=== PATIENT | male | born 1980 | race Caucasian/White ===

== ENCOUNTER 2024-02-09 23:30 | Inpatient (IN) | payer OTHER, SELFPAY ==
[2024-02-09 20:24] VITALS: BP 158/95
--- NOTE | 2024-02-09 21:15 | ED.GENMED ---
History of Present Illness
General
Chief Complaint: Extremity Pain (non-traumatic)
Source: patient
Time Seen by Provider: 02/09/24 21:07
History of Present Illness
History of Present Illness:
43yo right hand dominant male with no known past medical history presenting for evaluation of right arm swelling x 3 days. He reports swelling and discomfort in his right forearm for the past few days. He is also having right shoulder pain. He
reports some paresthesias in the hand. He denies any trauma to the area. Patient is worried that he may have a blood clot. 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 Patient is not on any current medications.
Past History
Past History
ED Past Medical History: None
ED Past Surgical History: None
Social History
Tobacco: Non-smoker
Personal:
Living: with family
Employment: Employed ([employer])
Family History
Family History: Other (Noncontributory)
Phy Exam
General Physical Exam
General Presentation: well appearing and no apparent distress
General age: appears stated age
General Skin: warm and dry
General Habitus: normal
General Mental: alert
ENT Exam
ENT Exam: normocephalic
Pulmonary Exam
Pulmonary Exam: no respiratory distress
Frankie Coma Scale
Eye Opening: Spontaneous
Verbal Response: Oriented
Motor Response: Obeys Commands
GCS Total Score: 15
Musculoskeletal Exam
Musculoskeletal Exam: other (+Generalized swelling in L forearm with prominent veins. Compartments soft. ROM of shoulder, elbow, wrist intact. 2+ radial pulse and sensation intact. )
Skin Exam
Skin Exam: normal color and warm/dry
Psychiatric Exam
Psychiatric Exam: normal mood/affect
Course
Orders/Labs/Results
Orders:
Orders
02/09/24 21:14
CR Shoulder - Right Min 2 View Urgent
Comment:
Reason For Exam: pain
US Periph Venous UPPER Ext RT Urgent
Reason For Exam: R arm swelling
02/09/24 22:34
Heparin 5,800 units IV NOW STA
Nursing to Place Non Medication Order As Directed
Physician Order: PTT 6 hours after initial start of Heparin infusion
02/09/24 22:45
Heparin 61788 Units/250 ml 25,000 units in 250 ml IV PER PROTOCOL
Weight to be used for heparin protocol in kilograms (kg):: 73.1
Protocol:: DVT/PE
PTT Goal Range to be used:: PTT 73 to 111 seconds
Order type:: Initial
INITIAL Infusion Dose (UNITS/KG/hr) & then follow protocol:: 18 units/kg/hr
Infusion Dose in UNITS/hr & then follow protocol (UNITS/hr):: 1,300
INFUSION RATE in mL/hr & then follow protocol (mL/hr):: 13
For DVT/PE algorithm, re-bolus for low PTT?: Yes
PTT less than or equal to 64 seconds:: Re-bolus 80 units/kg (max 10,000units). Increase by 300 units/hr
(+ 3mL/hr)
PTT 64.1 to 72.9 seconds:: Re-bolus 40 units/kg (max 5,000 units). Increase by 100 units/hr
(+ 1mL/hr)
PTT 73 to 111 seconds:: Target Range. No change in rate.
PTT 111.1 to 130.9 seconds:: Decrease rate by 100 units/hr (- 1 mL/hr)
PTT 131 to 199.9 seconds:: HOLD for 1 hr. Then decrease by 200 units/hr (- 2mL/hr)
PTT greater than or equal to 200 seconds:: HOLD for 2 hrs & Notify Provider. Then decrease by 300 units/hr
(- 3mL/hr)
Lab follow-up:: Each change, PTT q6h until 2 consecutive are therapeutic. Then
PTT daily.
02/09/24 23:00
Flush (0.9% Sodium Chloride) [Flush (Nss)] See Dose Instructions IV PER PROTOCOL
02/09/24 23:07
Admit/Transfer Patient As Directed
Co-Sign Provider:
Level of Care: Inpatient admission
Assign to:: Telemetry
Physician / Group: Vanessa
Diagnosis: RUE DVT
Reason for Telemetry: Arrhythmia
Date to Stop Telemetry: 02/12/24
Time to Stop Telemetry: 11:00
Reason for Hospitalization: heparin drip
Expected length of stay greater than two midnights?: Yes
ELOS- Estimated Length of Stay in days: 3
I certify the patient meets the requirements for IP care: Yes
02/09/24 23:08
PRN Pain Medication Management As Directed
May give lesser potent ordered pain med per pt: Yes
preference::
Protocol:: Medication orders for pain may be administered in a
manner that supports deferring to patient preference
when the pt is:
- Requesting an ordered lesser potent pain medication.
Least to most potent pain medications are defined
as: acetaminophen < NSAID < tramadol < opioids
(morphine, oxycodone, hydromorphone).
- Requesting a lesser dose of the same medication IF
ORDERED.
- Requesting a less intrusive route of administration
if both routes are prescribed by the provider (PO <
IV).
02/09/24 23:10
Code Status As Directed
Resuscitation Status: Full Code
02/09/24 23:27
Heparin 5,900 units IV PRN PRN
02/09/24 23:28
Heparin 2,900 units IV PRN PRN
02/09/24 23:30
Complete Blood Count/With Diff Urgent
Comprehensive Metabolic Panel Urgent
PTT Urgent
Prothrombin Time Urgent
02/12/24 11:00
DC Protocol for Telemetry ONCE
Abnormal Lab Results
02/09/24
23:30
RBC 4.63 L 10^6/uL
(4.70-6.10)
MCH 31.7 H pg
(27.0-31.0)
Lymphocytes % 20.3 L %
(20.5-51.1)
BUN 22 H mg/dl
(9-20)
Glucose 106 H mg/dl
(70-99)
02/09/24 23:30
02/09/24 23:30
Vital Signs
Initial and Last Documented VS:
Initial Vital Signs
Temp Pulse Resp BP Pulse Ox
98.3 F 91 16 158/95 100
02/09/24 20:24 02/09/24 20:24 02/09/24 20:24 02/09/24 20:24 02/09/24 20:24
Last Documented Vital Signs
Temp Pulse Resp BP Pulse Ox
98.3 F 91 16 158/95 100
02/09/24 20:24 02/09/24 20:24 02/09/24 20:24 02/09/24 20:24 02/09/24 20:24
MDM/Problems Addressed
Differential Diagnosis Includes:
43yoM here with atraumatic R arm swelling x 3 days. He is mildly hypertensive with otherwise normal vital signs. He is well-appearing in no acute distress. There is swelling noted to the right upper extremity with prominent veins in the forearm.
Extremity is neurovascularly intact. Differential diagnosis includes but is not limited to: Superficial thrombophlebitis, DVT, dependent edema, no clinical evidence of compartment syndrome
Initial ED plan: Check venous duplex and right shoulder x-rays.
*Critical Care Note
Total Time (30-74mins, 75-104mins- exclusive of procedures): Not Applicable
Update Note
Update Note:
Venous duplex shows an acute occlusive DVT in the right subclavian vein. Unclear precipitant of DVT. Patient has no obvious risk factors and denies any recent travel. His father does have a history of a DVT although patient states this was
precipitated by a 10-hour car ride. Labs and IV heparin ordered. He was admitted for further evaluation and management.
ED Attending Note
-
Portions of this chart may have been created with voice recognition software.� Occasional wrong word or��sound alike� substitutions may have occurred due to the inherent limitations of voice recognition software.
Discharge Plan
Departure
Patient Disposition: Admit
Date of Disposition: 02/09/24
Time of Disposition: 22:47
Presentation/result/management discussed w/ accepting MD/DO: Hospitalist
Discharge Problem:
Acute subclavian vein thrombosis
Interventions
Interventions:
*Risk Screen - Suicide Last Done: 02/09/24 20:24
*General Assessment Last Done: 02/09/24 21:07
*Neglect/Abuse Screening Last Done: 02/09/24 21:07
*ED COVID-19 Vaccine History Last Done: 02/09/24 21:07
ED-Skin Assessment Last Done: 02/09/24 21:07
ED-Musculoskeletal Assessment Last Done: 02/09/24 21:07
--- NOTE | 2024-02-09 22:53 | HPS.HSE ---
Family Physician
-
Family Physician: Rm Capps
Chief Complaint
-
Pain and Swelling of Right Arm
History of Present Illness
Patient is a 43 y/o male without significant past medical history who presents with pain and swelling of the right arm for the past 3 days. He reports pain and swelling have gotten progressively worse over the past few days. Patient reports
prominent veins in the right upper extremity. He notes the arm feels tight with some associated numbness and tingling. He notes some upper right posterior shoulder pain. He denies any known injury.
Medical History
Past Medical History
Past Medical History: Reports None
Past Surgical History: Reports None
Social History
Tobacco: Non-smoker
Alcohol: Occasional
Family History
Family History: Other (Father: DVT)
Allergies / Home Medications
Allergies reflects when Allergies were last updated in [facility].
Home Medications with original date entered in [facility]
Allergy/Medication List:
Allergies
Allergy/AdvReac Type Severity Reaction Status Date / Time
No Known Allergies Allergy Verified 02/09/24 20:23
Home Medications
No Meds [No Current Medications] 02/09/24
Review of Systems
-
A 12 point ROS was completed and negative except as noted: Yes
Constitutional: Denies Fever or Chills
Respiratory: Denies Cough or Trouble Breathing
Cardiac: Denies Chest Pain or Palpitations
Abdomen/GI: Denies Abdominal Pain, Nausea or Vomiting
Physical Exam
Vital Signs
Vital Signs
Temp Pulse Resp BP Pulse Ox
98.3 F 91 16 158/95 100
02/09/24 20:24 02/09/24 20:24 02/09/24 20:24 02/09/24 20:24 02/09/24 20:24
Physical Exam
General: Comfortable and Conversant
HEENT: Anicteric and Moist mucous membranes
Respiratory: Clear and Non Labored Respirations
Cardiac: S1/S2 and Regular Rhythm
GI: Soft and Non Tender
Rectal: Deferred by Provider
Musculoskeletal: No Clubbing, No Cyanosis and Other (Right Upper Extremity)
Skin: Warm and Dry
Neuro: Awake, Alert, Oriented and Nonfocal/grossly intact
Psych: Calm
Laboratory Results
-
Peripheral Vascular Ultrasound:
ACUTE OCCLUSIVE DEEP VENOUS THROMBOSIS in the RIGHT SUBCLAVIAN VEIN.
Data Reviewed
-
Lab Data: Other (CBC and CMP are pending)
Impression/Plan
-
Right Subclavian Vein DVT
-Consult Vascular Surgery
-Continue heparin drip
-Patient would benefit from hematology evaluation as outpatient
Code Status: Full Code
--- NOTE | 2024-02-09 23:17 | W.PN.UPDATE ---
Update Note
Progress Note Update
This is an addendum to the H&P written by Svetlana Mesa on 02/09/2024. Patient seen and examined independently with PA.
43-year-old male no past medical history presenting for right arm swelling and discomfort radiating to the shoulder for 3 days with some numbness in the fingers. He denies any trauma. Venous ultrasound of right upper extremity shows acute
occlusive DVT in the right subclavian vein.
His father had a DVT in his right lower extremity which was not provoked from any clear cause.
On examination the right upper extremity is very tight.
DVT appears to be unprovoked. Heparin drip. Vascular surgery consulted due to numbness and tingling in the upper extremity for consideration of thrombolysis. Outpatient follow-up with hematology for hypercoagulation workup.
[2024-02-09] MEDS: HEPARIN 5800 UNITS IV (23:35)
[2024-02-09 23:37] LABS: % Basophils 0.5 % (0-2); % Eosinophils 1.2 % (0-6); % Immature Granulocytes 0.3 % (0-0.5); % Lymphocytes 20.3 % (20.5-51.1); % Monocytes 6.8 % (1.7-9.3); % Neutrophils 70.9 % (42.2-75.2); Absolute Eosinophils 0.1 10^3/uL (0-0.7); Absolute Lymphocytes 1.6 10^3/uL (1.2-3.4); Absolute Monocytes 0.5 10^3/uL (0.1-0.6); Absolute Neutrophils 5.5 10^3/uL (1.4-6.5); Hematocrit 42.1 % (39.0-52.0); Hemoglobin 14.7 g/dL (13.0-18.0); Mean Corp Hgb Conc. 34.9 g/dL (33.0-37.0); Mean Corpuscular Hgb 31.7 pg (27.0-31.0); Mean Corpuscular Volume 90.9 fL (80.0-94.0); Mean Platelet Volume 9.2 fL (7.4-10.4); Nucleated Red Blood Cells % 0 % (-); Platelet Count 211 10^3/uL (130-400); Red Blood Cell Count 4.63 10^6/uL (4.70-6.10); Red Cell Dist. Width 11.5 % (11.5-14.5); White Blood Cell Count 7.8 10^3/uL (4.8-10.8)
[2024-02-09] MEDS: HEPARIN 25000 UNITS/250 ML IV (23:39)
[2024-02-09] MEDS: TYLENOL 1000 MG PO (23:48)
[2024-02-09 23:49] LABS: ALT (SGPT) 25 U/L (0-50); AST (SGOT) 31 U/L (17-59); Albumin 4.9 g/dl (3.5-5.0); Alkaline Phosphatase 98 U/L (38-126); Blood Urea Nitrogen 22 mg/dl (9-20); Calcium 9.7 mg/dl (8.4-10.2); Carbon Dioxide 25 mmol/L (22-30); Chloride 101 mmol/L (98-107); Glucose 106 mg/dl (70-99); Potassium 3.8 mmol/L (3.5-5.1); Sodium 143 mmol/L (135-145); Total Bilirubin 0.6 mg/dl (0.2-1.3); Total Protein 7.5 g/dl (6.3-8.2); eGFR > 60.00
[2024-02-10] VITALS (18 sets, daily range): BP systolic 100–135; BP diastolic 68–97; BMI 22.9
[2024-02-10] LABS: INR 1.11; PT 14.3 Sec (11.4-14.6)
[2024-02-10 00:01] LABS: APTT 28.3 Sec (23.4-35.0)
--- NOTE | 2024-02-10 01:32 | PTCARENOTE ---
Received pt from ED Via stretcher. Patient able to stand on standing scale with minimal assistance. Pt AAO*4. Denies any chest pain or shortness of breath. Heparin gtt currently at 1300 units hour with next ptt draw ordered for 0540 for ptt goal
73-111. Vital signs stable. Pt oriented to room and plan of care. All orders reviewed and acknowledged. Bed in low position, call briceno within reach.
[2024-02-10] MEDS: TYLENOL 650 MG PO ×2 (03:16→18:25)
[2024-02-10 06:31] LABS: Hematocrit 42.3 % (39.0-52.0); Hemoglobin 15.1 g/dL (13.0-18.0); Mean Corp Hgb Conc. 35.7 g/dL (33.0-37.0); Mean Corpuscular Hgb 31.9 pg (27.0-31.0); Mean Corpuscular Volume 89.4 fL (80.0-94.0); Mean Platelet Volume 9.2 fL (7.4-10.4); Platelet Count 192 10^3/uL (130-400); Red Blood Cell Count 4.73 10^6/uL (4.70-6.10); Red Cell Dist. Width 11.4 % (11.5-14.5); White Blood Cell Count 6.1 10^3/uL (4.8-10.8)
[2024-02-10 06:54] LABS: APTT 143.3 Sec (23.4-35.0); Blood Urea Nitrogen 18 mg/dl (9-20); Calcium 9.5 mg/dl (8.4-10.2); Carbon Dioxide 23 mmol/L (22-30); Chloride 103 mmol/L (98-107); Estimated Creatinine Clearance 124 ml/min; Glucose 103 mg/dl (70-99); Potassium 3.9 mmol/L (3.5-5.1); Sodium 141 mmol/L (135-145); eGFR > 60.00
--- NOTE | 2024-02-10 08:18 | CON.VAS ---
Addendum entered and electronically signed by Julián Rizzo III, MD 02/10/24 13:21:
This patient was seen and examined with ASHLEY Rowell. I agree with the history and physical exam as well as the assessment and plan. I have the following additions:
Healthy 43-year-old male
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
Very active with exercise and strength training/weights
Acute onset of right upper extremity swelling and right shoulder discomfort reports. Playing baseball with his son prior to onset of symptoms where he was throwing the ball repetitively high in the air
Family history of spontaneous lower extremity DVT in his father (in his 70s)
No known history of hypercoagulable disorder personal or family
Venous duplex demonstrates occlusive right subclavian vein DVT
On physical examination he is in no acute distress
Nonlabored breathing
Engorgement of the superficial veins in the right arm
Obvious right arm swelling and purple discoloration
Palpable radial pulse
No history of stroke
No history of recent bleeding events
No recent surgery
No bleeding abnormalities
No GI bleeding upper or lower
No history of gastric ulcers
No recent injuries
High suspicion for venous thoracic outlet syndrome given presenting symptoms and duplex findings. My recommendation is for right upper extremity/central venogram and initiation of venous thrombolysis. We also discussed definitive surgical
intervention by way of first rib resection and anterior scalenectomy. Technical aspects of the venogram and lysis were discussed with him in detail. Benefits and rationale for this approach were discussed with him in detail. Operative risks were
discussed with him in detail including but not limited to minor bleeding, access site vessel injury, life-threatening bleeding related to tPA administration contrast nephropathy and the need for additional procedures. He expressed a clear
understanding of our conversation and agrees to proceed with surgery as detailed above.
Signed:
Julián Rizzo III, MD
[facility] Surgery
[phone] (txoh)
Original Note:
Consultation
Consultation Request
Date/Time Consultation Performed: 02/10/24 0800
Requesting Provider: Hospitalist
Performing Provider: Felecia Finnegan, MANISH-C for Julián Rizzo III, MD
Reason for Consultation: Right upper extremity subclavian vein DVT
Medical History
-
Chief Complaint: Right upper extremity swelling
History of Present Illness:
This is a 43-year-old male with no significant past medical history who reports to [place] ED reporting roughly 2 to 3 days of worsening right upper extremity swelling with newly accompanying right shoulder discomfort. He endorses that his
father was diagnosed with a lower extremity DVT following a prolonged travel prompting concern that he was also experiencing a DVT. ED evaluation did confirm subclavian vein clot resulting in admission and initiation of heparin. Currently he is
resting comfortably in bed, does endorse continued right upper extremity edema and mild achy feeling in posterior shoulder area; otherwise offers no complaints. 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
continuously, he also notes the day before the swelling occurred he was throwing a baseball repetitively for several hours particularly up in the air for his son to practice catching. Denies right hand numbness, tingling, coolness, or weakness. He
is right-hand dominant.
Past Medical History
Past Medical History: None
Past Surgical History: None
Social History
Tobacco: Non-Smoker
Alcohol: Occasional
Living: With Family
Employment: Other ([employer])
Family History
Family History: Other (Paternal DVT)
Allergies / Home Medications
Allergy/AdvReac Type Severity Reaction Status Date / Time
No Known Allergies Allergy Verified 02/09/24 20:23
�Medication �Instructions �Recorded �Confirmed �Type
No Meds [No Current Medications] 02/09/24 02/09/24 History
Review of Systems
-
History Source: Patient
Constitutional: Reports No Symptoms
EENT: Reports No Symptoms
Respiratory: Reports No Symptoms
Cardiac: Reports No Symptoms
Vascular: Denies Leg Pain / Claudication, Numbness or Tingling
Abdomen/GI: Reports No Symptoms
: Reports No Symptoms
Musculoskeletal: Reports Edema (Right upper extremity edema with accompanying pain at posterior shoulder)
Skin: Reports No Symptoms
Neurological: Reports No Symptoms
Endocrine: Reports No Symptoms
Physical Exam
Vital Signs
Temp Pulse Resp BP Pulse Ox
99.2 F 86 19 100/68 98
02/10/24 06:00 02/10/24 03:07 02/10/24 03:07 02/10/24 03:07 02/10/24 03:07
Lab Results
02/10/24 06:05
02/10/24 06:05
Physical Exam
General: No Apparent Distress and Comfortable
HEENT: Normocephalic, Anicteric and Atraumatic
Respiratory: Non Labored Respirations
Cardiac: Negative JVD
GI: Soft and Non Distended
Musculoskeletal: Edema (+2 right upper extremity edema, hand warm, full range of motion and strength at hand, palpable +2 radial pulse)
Skin: Warm and Dry
Neuro: AO x 3
Assessment / Plan
-
Assessment: 43-year-old male with acute venous clot at right upper extremity subclavian vein suspect thoracic outlet syndrome
Plan:
Will plan for insertion of lysis catheter today, will require repeat OR tomorrow for lysis catheter check and possible removal
N.p.o.
Will plan for first rib resection in the near future
In the interim continue anticoagulation via heparin infusion
Patient endorses concern for a familial history given that his father also developed a blood clot, would be appropriate to have patient follow-up with hematology in the outpatient setting for blood work
Plan reviewed with attending Dr. Julián Rizzo III
--- NOTE | 2024-02-10 09:54 | W.PN.HOSP.TC ---
Today's Communication/Plan
-
IV heparin drip. Lysis catheter procedure today.
Assessment / Plan
Assessment / Plan
Physical exam:
General: Well Developed, Well Nourished and No Apparent Distress
HEENT: Normocephalic, Atraumatic and Moist Mucous Membranes
Respiratory: Clear to Auscultation; Negative Wheezes, Rales or Rhonchi
Cardiac: Regular Rhythm and S1/S2
GI: Soft, Nontender and Nondistended
Musculoskeletal: Engorgement of the superficial veins in the right arm. There is also right arm swelling and purple discoloration. No Clubbing, No Cyanosis and No Edema
Neuro: Awake, Alert and Oriented
Psych: Calm
A/P:
Acute occlusive right subclavian vein deep vein thrombosis:
Suspicion for thoracic outlet syndrome
Continue IV heparin drip
Vascular surgery consulted and plan for lysis catheter today
He might require surgery reeval after lysis tomorrow
Will need genetic workup as outpatient for hypercoagulable state
We will consider doing Doppler of the lower extremities but will allow for procedures to be done today not to interfere with scheduling.
Might also require first rib resection in the near future
Discussed with hematology today over the phone (Dr. Larry Lambert)-I will arrange for outpatient referral after acute hospitalization.
Plan to switch to DOAC after all procedures have been completed.
Discussed with at bedside
Possible thoracic outlet syndrome:
Might require CT surgery evaluation down the road
DVT prophylaxis:
Currently on treatment heparin drip
CODE STATUS:
Full code
Time spent 55 minutes
Anticipated Discharge: > 48 hours
Subjective/Interval History
-
Date of Service: February 10, 2024
Patient does have right arm and shoulder discomfort. Denies chest pain or shortness of breath. Afebrile
Objective Data
-
Labs:
Laboratory Results
02/09/24 02/10/24 02/10/24
23:30 06:05 15:05
WBC 7.8 6.1
Hgb 14.7 15.1
Hct 42.1 42.3
Plt Count 211 192
PT 14.3
INR 1.11
APTT 28.3 143.3 H Pending
Sodium 143 141
Potassium 3.8 3.9
Chloride 101 103
Carbon Dioxide 25 23
BUN 22 H 18
Creatinine 1.0 0.8
Glucose 106 H 103 H
Calcium 9.7 9.5
Total Bilirubin 0.6
AST 31
ALT 25
Alkaline Phosphatase 98
Vital Signs:
Vital Signs
Temp Pulse Resp BP Pulse Ox
97.8 F 90 18 134/88 97
02/10/24 07:30 02/10/24 07:30 02/10/24 07:30 02/10/24 07:30 02/10/24 07:30
I&O
02/09/24 02/10/24 02/11/24
06:59 06:59 06:59
Intake Total 318 / 318
Balance 318 / 318
--- NOTE | 2024-02-10 10:58 | CM ---
Met with patient and at bedside; initial assessment completed
Case Management Consult completed: Advance Directive information provided
Pharmacy verified and updated on chart: [facility] [address]
Patient lives with and 3 children ages 9,8,6 in a 2 [address] w/ Basement
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
NO DME
NO SNF
will transport home
Plan: Discharge to home when medically stable; no needs anticipated
--- NOTE | 2024-02-10 13:21 | W.SUR.PREOP ---
Pre-Operative Surgical Note
-
I have examined this patient prior to the performance of the scheduled procedure.
The patient's condition is unchanged from the time of the current History and
Physical and the patient is able to undergo the scheduled procedure.
--- NOTE | 2024-02-10 15:20 | CON.INTV ---
Consultation
Consultation Request
Date/Time Consultation Requested: 02/10/2024 - 150
Date/Time Consultation Performed: 02/10/2024 - 1516
Requesting Provider: ASHLEY Flores
Performing Provider: Damián Leavitt MD
Reason for Consultation: R-subclavian vein thrombolysis
Medical History
-
Chief Complaint: Right upper extremity pain X 2 days
History of Present Illness:
43-year-old male with no significant past medical history presents with right forearm pain X 2 days. There was no reported preceding injury. It also was swollen. He also reported prominent veins in his right arm. He had some associated numbness
and tingling and also right-sided shoulder pain. Initial vitals in the ER showed he was afebrile to 98.3 �F, pulse rate 91, breathing at 16 breaths minute, BP 158/95 and saturating 100% on room air. Initial labs showed normal WBC at 7.8, Hb 14.7,
and INR 1.11. Right upper extremity ultrasound showed an acute occlusive DVT in the right subclavian vein. Right shoulder XR showed no rib fracture or pneumothorax. He was admitted to telemetry and started on a heparin drip. Vascular surgery was
consulted and there was concern for venous thoracic outlet syndrome with recommendation of venous thrombosis. Risks and benefits of vascular intervention were discussed and today he underwent catheter directed thrombolysis in the right upper
extremity. EBL was 2 cc with no immediate complications. Patient was transferred to the ICU postoperatively and now pipe wrapping machine operator services consulted for additional management/recommendations.
When I saw the patient he was resting in bed with his father, Neal, at bedside. All questions were answered. He currently has no complaints, denying chest pain, SOB, abdominal pain, fevers or chills. Current heart rate 77, saturating 99% on room
air and BP 117/97. Of note, his father had DVT/PE last year and had COVID-19 three times prior to getting diagnosed with DVT/PE. His father had seen hematology with hypercoagulable workup that was reportedly negative.
PMHx: Non-contributory
PSHx: Non-contributory
Past Medical History
Past Medical History: Other (Above as per HPI)
Past Surgical History: Other (Above as per HPI)
Social History
Tobacco: Non-smoker
Alcohol: Occasional
Drug: None
Family History
Family History: Other (Father: DVT)
Allergies / Home Medications
Allergies
Allergy/AdvReac Type Severity Reaction Status Date / Time
No Known Allergies Allergy Verified 02/09/24 20:23
Home Medications
�Medication �Instructions �Recorded �Confirmed �Last Taken �Type
No Meds [No Current Medications] 02/09/24 02/09/24 Unknown History
Review of Systems
-
History Source: Patient
All other systems: Negative unless noted
Vitals / Labs / Diagnostic Testing
Vital Signs
Temp Pulse Resp BP Pulse Ox
97.3 F 83 18 114/76 96
02/10/24 11:25 02/10/24 11:25 02/10/24 11:25 02/10/24 11:25 02/10/24 11:25
Lab Data
02/10/24 06:05
Laboratory Results
02/09/24 02/10/24
23:30 06:05
PT 14.3
INR 1.11
APTT 28.3 143.3 H
Diagnostic Testing:
Physical Exam
-
HEENT: Normocephalic and Anicteric
Cardiovascular: S1/S2 and Peripheral Edema (negative)
Respiratory: Wheeze (negative), Rales (negative), Rhonchi (negative) and Non-Labored Respirations
GI: Soft, Non Distended, Non Tender and Normal Bowel Sounds
Neurology: AO x 3 and Tremors (negative)
Skin: Warm and Dry
General: Respiratory Distress (negative), Comfortable, Fever (negative), Chills (negative) and Sweats (negative)
Assessment
-
Assessment: 43-year-old male with no significant past medical history presents with right forearm pain X 2 days. There was no reported preceding injury. It also was swollen. He also reported prominent veins in his right arm. He had some
associated numbness and tingling and also right-sided shoulder pain. Initial vitals in the ER showed he was afebrile to 98.3 �F, pulse rate 91, breathing at 16 breaths minute, BP 158/95 and saturating 100% on room air. Initial labs showed normal
WBC at 7.8, Hb 14.7, and INR 1.11. Right upper extremity ultrasound showed an acute occlusive DVT in the right subclavian vein. Right shoulder XR showed no rib fracture or pneumothorax. He was admitted to telemetry and started on a heparin drip.
Vascular surgery was consulted and there was concern for venous thoracic outlet syndrome with recommendation of venous thrombosis. Risks and benefits of vascular intervention were discussed and today he underwent catheter directed thrombolysis in
the right upper extremity. EBL was 2 cc with no immediate complications. Patient was transferred to the ICU postoperatively and now pipe wrapping machine operator services consulted for additional management/recommendations.
Chronic conditions LAB NURSE: Non-contributory
Impression:
#Acute occlusive right subclavian DVT with suspected venous thoracic outlet syndrome s/p catheter directed thrombolysis (POD #0)
#Right upper extremity pain/swelling due to above
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
Plan:
Postoperative surgical intensive care unit monitoring
Continue with infusion of alteplase + heparin gtt into right upper extremity
It is suspected that he has venous thoracic outlet syndrome due to his right sided first rib causing mechanical obstruction; patient will likely have right first rib resection early next week
Supplemental oxygen as needed to maintain SpO2 >90-94%
prn nebulized bronchodilators - not currently bronchospastic
Incentive spirometry encouraged 10x per hour for at least 4 hrs a day
Aspiration precautions
Pain control
Neuro and vascular checks per protocol
Maintain MAP>65
Replete electrolytes with K>4, Mg>2
Maintain euglycemia with goal BG 140-180
Vascular surgery following-correspondence and operative notes reviewed
Transfuse blood products as needed to keep Hb>7g/dL, and plt>50k (given post-operative status)
Possible outpatient hematology evaluation for hypercoagulable workup
DVT prophylaxis
Early nutrition
Early mobilization
Critical care statement: A total of 41 minutes of critical care time was provided for this patient today. This includes management of unstable vital signs, evaluation of the patient at bedside, reviewing the patient's pertinent medical records
including radiographs, microbiology, laboratory evaluations, and discussion with primary team, consultants, pharmacy, nutrition, physical therapy, case management, charge nurse, critical care nursing, and respiratory therapy.
Right upper extremity duplex ultrasound 02/09/2024: ACUTE OCCLUSIVE DEEP VENOUS THROMBOSIS in the RIGHT SUBCLAVIAN VEIN.
--- NOTE | 2024-02-10 16:02 | W.IMMPOSTOP ---
Surgical Immed Post Op Note
-
Primary Surgeon: Julián Rizzo III, MD
Assisting Surgeon: Marquise Harding MD
Pre-op Diagnosis: R Subclavian DVT
Post-op Diagnosis: As above
Procedure Performed: RUE Venogram, Catheter - Directed Lysis
Anesthesia Type: Sedation
Specimen / Cultures: NA
Estimated Blood Loss: 2cc
Complications: None
Operative Findings:
Access obtained via R basilic vein. Initial venogram demonstrating clear obstruction spanning 13cm within subclavian artery. A 6Fr sheath was placed and a 4Fr 200mm catheter was placed to cover the area of concern. A continuous heparin drip and TPA
drip were connected to the sheath and catheter, respectively, before the patient left the room.
[2024-02-10] MEDS: HEPARIN 25000 UNITS/250 ML VEN SHEATH (16:10)
[2024-02-10] MEDS: CATHFLO/ACTIVASE 16 ML INF CATH ×2 (16:11→23:32)
[2024-02-10] MEDS: CATHFLO/ACTIVASE 16 MG INF CATH ×2 (16:11→23:32)
[2024-02-10] MEDS: NSS 1000 IV (16:15)
[2024-02-10] MEDS: NSS 1000 INF CATH (16:15)
[2024-02-10] MEDS: ANCEF 5 IV (16:42)
--- NOTE | 2024-02-10 17:14 | OR.RPT ---
Operative Report
Operative Report
Date of Operation: 02/10/2024
Pre Op Diagnosis:
1.) Right subclavian vein thrombosis
2.) Suspected venous thoracic outlet syndrome
Post Op Diagnosis:
1.) Right subclavian vein thrombosis
2.) Suspected venous thoracic outlet syndrome
Procedure:
1.) Diagnostic right upper extremity venogram
2.) Central venogram
3.) Initiation of venous thrombolysis (4 Emirati 20 cm infusion length Cragg Mele catheter)
4.) Ultrasound-guided percutaneous basilic vein access
Surgeon: Julián Rizzo III, MD
Assembler Hydraulic Backhoe: Marquise Harding MD PGY-2
Anesthesia: Sedation/local
Complications: None
History and Indications for Procedure: Healthy 43-year-old male who presented with right upper extremity discoloration and swelling. Venous duplex demonstrated a right subclavian vein DVT. He was taken to the operating room for venogram and
possible endovascular intervention with a suspected diagnosis of thoracic outlet syndrome
Procedure in Detail: Micky Granger was correctly identified and placed supine on the operating table with his right arm abducted on an armboard. After adequate induction of anesthesia his right upper extremity was prepped and draped in the
usual sterile fashion. A timeout procedure was performed with the nursing and anesthesia staff confirming the patient's identity as well as the nature and laterality of the procedure.
Under ultrasound guidance we identified the basilic vein over the medial arm just proximal to the elbow. Local anesthesia was infiltrated into the puncture site. Under ultrasound guidance we accessed the basilic vein with a micropuncture needle
and upsized to a 6 Emirati sheath over a Think Skyson wire. A venogram was performed through the sheath which demonstrated sluggish flow through the basilic and brachial veins. No flow was seen past the axillary vein.
I then advanced a glide catheter to the axillary vein and performed an additional venogram confirming bulky thrombus within the axillary vein and subclavian vein. Using a Glidewire and glide catheter I was able to advance through the axillary and
subclavian vein the wire. There was resistance to advancing the wire and catheter across the first rib consistent with a diagnosis of thoracic outlet syndrome. The wire and catheter were advanced into the superior vena cava and a central venogram
was performed. The superior vena cava was patent. I then performed pullback injections through the glide catheter to visualize the extent of the clot. The internal jugular vein and right brachiocephalic vein were patent. The extent of the
thrombus was identified. A Storq wire was then readvanced through the glide catheter and positioned in the superior vena cava.
Over the Storq wire I positioned a 4 Emirati 20 cm infusion length Cragg Mele catheter. Once in the desired position the wire was removed. 10 mg of tPA was pulse injected through the catheter into the clot. After 15 minutes I performed a
venogram through the lysis catheter which confirmed proper positioning.
Satisfied with this we secured the lysis catheter in place at the sheath exit site. The 6 Emirati sheath was secured to the skin with a nylon suture. The sideport of the 6 Emirati sheath was labeled appropriately as was the end of the lysis
catheter. Heparin drip was connected to the sideport of the 6 Emirati sheath and started at 500 units an hour. A tPA drip was connected to the end of the lysis catheter and started at 0.5 mg an hour. The sheath and lysis catheter were secured to
the skin with multiple Tegaderm dressings.
Satisfied with this result we concluded the procedure. The patient tolerated the procedure well and was taken to the recovery room in stable condition.
Attestation: I was present and responsible for the entire procedure
Signed:
Julián Rizzo III, MD
[facility] Vascular Surgery
[phone] (cell)
[2024-02-10 17:28] LABS: Hematocrit 41.5 % (39.0-52.0); Hemoglobin 14.4 g/dL (13.0-18.0); Platelet Count 197 10^3/uL (130-400)
[2024-02-10 18:29] LABS: INR 1.14; PT 14.4 Sec (11.4-14.6)
[2024-02-10 18:30] LABS: APTT 38.5 Sec (23.4-35.0)
[2024-02-10 18:32] LABS: APTT 36.9 Sec (23.4-35.0); Fibrinogen 295 MG/DL (199-459)
--- NOTE | 2024-02-10 18:44 | PTCARENOTE ---
Bedside handoff done with vascular OR. Left brachial venous sheath in place with TPA infusing @ 0.5mg/hr, NSS carrier IVF infusing @ 23ml/hr, and Heparin infusing @ 500 units/hr. SaO2 98%. Lungs clear to auscultation. Sinus rhythm on telemetry
monitor. PRN Tylenol PO requested for pain and administered. Clear liquid diet. Pt instructed about bedrest orders and keeping limb restraint.
--- NOTE | 2024-02-10 21:21 | PTCARENOTE ---
Assumed care of pt at 1900. Pt is A/O x4, pleasant and cooperative with care, able to make needs known. Neurovascular check and thrombolysis med check done in tandem with offgoing RN at shift change. Alteplase and Heparin infusing through right
brachial venous sheath, heparin at 500 units/hr, alteplase at 0.5mg/hr (2mL/hr) with NS at 23mL/hr as carrier fluid. Neurovascular and neurological checks WNL. See nursing shift assessment flowsheet for full physical assessment details. SR 70s on
monitor. SpO2 97-98% on RA.
[2024-02-10 21:37] LABS: Hematocrit 38.5 % (39.0-52.0); Hemoglobin 13.6 g/dL (13.0-18.0); Platelet Count 191 10^3/uL (130-400)
[2024-02-10 21:49] LABS: INR 1.21; PT 15.1 Sec (11.4-14.6)
[2024-02-10 21:50] LABS: APTT 38.9 Sec (23.4-35.0); Fibrinogen 272 MG/DL (199-459)
[2024-02-11] VITALS (33 sets, daily range): BP systolic 100–145; BP diastolic 70–105; BMI 22.9
[2024-02-11] MEDS: ANCEF 5 IV (00:34)
--- NOTE | 2024-02-11 00:40 | PTCARENOTE ---
Assessment unchanged, neurovascular and neurological checks ongoing and WNL, continues on Alteplase and Heparin infusions through R brachial venous sheath. SR 60s-70s on monitor, SpO2 96-97% on RA.
[2024-02-11 03:41] LABS: Hemoglobin 14.1 g/dL (13.0-18.0); Mean Corp Hgb Conc. 35.3 g/dL (33.0-37.0); Mean Corpuscular Hgb 31.9 pg (27.0-31.0); Mean Corpuscular Volume 90.5 fL (80.0-94.0); Mean Platelet Volume 9.2 fL (7.4-10.4); Platelet Count 179 10^3/uL (130-400); Red Blood Cell Count 4.42 10^6/uL (4.70-6.10); Red Cell Dist. Width 11.5 % (11.5-14.5); White Blood Cell Count 5.1 10^3/uL (4.8-10.8)
[2024-02-11 03:58] LABS: INR 1.27; PT 15.7 Sec (11.4-14.6)
[2024-02-11 03:59] LABS: APTT 38.2 Sec (23.4-35.0); Fibrinogen 257 MG/DL (199-459)
[2024-02-11 04:15] LABS: ALT (SGPT) 20 U/L (0-50); AST (SGOT) 28 U/L (17-59); Albumin 4.1 g/dl (3.5-5.0); Alkaline Phosphatase 74 U/L (38-126); Blood Urea Nitrogen 14 mg/dl (9-20); Carbon Dioxide 23 mmol/L (22-30); Chloride 106 mmol/L (98-107); Direct Bilirubin 0.2 mg/dl (0.0-0.4); Estimated Creatinine Clearance 110 ml/min; Glucose 89 mg/dl (70-99); Potassium 4.5 mmol/L (3.5-5.1); Sodium 140 mmol/L (135-145); Total Bilirubin 1.1 mg/dl (0.2-1.3); Total Protein 6.4 g/dl (6.3-8.2); eGFR > 60.00
--- NOTE | 2024-02-11 04:20 | PTCARENOTE ---
All assessments unchanged. Continues with Heparin and Alteplase through right brachial venous sheath.
[2024-02-11] MEDS: NSS 1000 IV (04:27)
[2024-02-11] MEDS: TYLENOL 650 MG PO (04:30)
--- NOTE | 2024-02-11 05:38 | PTCARENOTE ---
At approx 0520 pt rang call briceno to say that he was starting to notice that his right hand had decreased sensation compared to the left hand. Pt denies numbness and tingling but describes it as a 'tight' feeling in his fingers and less pronounced
feeling/less sensitive compared to the left. Assessment to RUE unchanged from previous assessment otherwise. Able to find strong doppler signal for right palmar pulse. Pt able to move extremity. Venous sheath intact. [place] text sent to
Derrell (afternoon babysitter vascular surgeon) to make him aware, awaiting reply.
[2024-02-11] MEDS: HEPARIN 25000 UNITS/250 ML VEN SHEATH (06:38)
--- NOTE | 2024-02-11 07:00 | PTCARENOTE ---
Received patient from plant inspector. Handoff at bedside, patient is AAOx3, SR on monitor, on room air. Patient has TPA/ NSS and Heparin infusing through right arm. Right radial pulse is easily palpable. Sensation is still 'different per patient
but becoming more normal' He is keeping his arm straight, no sling on. Patient is NPO, he is using urinal and on strict bed rest. NSS infusing into left AC. Will review orders.
--- NOTE | 2024-02-11 08:01 | PTCARENOTE ---
Patient potentially going to OR at 0930-10 per vascular team.
--- NOTE | 2024-02-11 08:18 | W.PN.INTV ---
Today's Communication / Plan
Recommendations
Catheter directed lysis has now stopped and he underwent balloon angioplasty of right subclavian vein/innominate vein with recanalization seen on venogram
Pain control
Heparin drip
Keep MAP >65
Keep SpO2 >90-94%
Continue with ICU level care as per vascular surgery. Once downgraded then we will sign off at that time.
Assessment
-
Assessment: 43-year-old male with no significant past medical history presents with right forearm pain X 2 days. There was no reported preceding injury. It also was swollen. He also reported prominent veins in his right arm. He had some
associated numbness and tingling and also right-sided shoulder pain. Initial vitals in the ER showed he was afebrile to 98.3 �F, pulse rate 91, breathing at 16 breaths minute, BP 158/95 and saturating 100% on room air. Initial labs showed normal
WBC at 7.8, Hb 14.7, and INR 1.11. Right upper extremity ultrasound showed an acute occlusive DVT in the right subclavian vein. Right shoulder XR showed no rib fracture or pneumothorax. He was admitted to telemetry and started on a heparin drip.
Vascular surgery was consulted and there was concern for venous thoracic outlet syndrome with recommendation of venous thrombosis. Risks and benefits of vascular intervention were discussed and today he underwent catheter directed thrombolysis in
the right upper extremity. EBL was 2 cc with no immediate complications. Patient was transferred to the ICU postoperatively and now hospital admissions officer services consulted for additional management/recommendations.
Chronic conditions SITE PROJECT MANAGER: Non-contributory
Impression:
#Acute occlusive right subclavian DVT with suspected venous thoracic outlet syndrome s/p catheter directed thrombolysis (POD #1) with subclavian and innominate vein balloon angioplasty (POD#0)
#Right upper extremity pain/swelling due to above
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
Plan:
Postoperative surgical intensive care unit monitoring
He is s/p infusion of alteplase now stopped and underwent balloon angioplasty of right subclavian and innominate vein today with venogram showing recanalization. Continue heparin gtt
It is suspected that he has venous thoracic outlet syndrome due to his right sided first rib causing mechanical obstruction; patient will likely have right first rib resection early next week
Supplemental oxygen as needed to maintain SpO2 >90-94%
prn nebulized bronchodilators - not currently bronchospastic
Incentive spirometry encouraged 10x per hour for at least 4 hrs a day
Aspiration precautions
Pain control
Neuro and vascular checks per protocol - currently q1hr
Maintain MAP>65
Replete electrolytes with K>4, Mg>2
Maintain euglycemia with goal BG 140-180
Vascular surgery following-correspondence and operative notes reviewed
Transfuse blood products as needed to keep Hb>7g/dL, and plt>50k (given post-operative status)
Possible outpatient hematology evaluation for hypercoagulable workup
DVT prophylaxis
Early nutrition
Early mobilization
Continue with ICU level of care as per vascular surgery. Once downgraded to telemetry then we will sign off at that time.
Critical care statement: A total of 39 minutes of critical care time was provided for this patient today. This includes management of unstable vital signs, evaluation of the patient at bedside, reviewing the patient's pertinent medical records
including radiographs, microbiology, laboratory evaluations, and discussion with primary team, consultants, pharmacy, nutrition, physical therapy, case management, charge nurse, critical care nursing, and respiratory therapy.
Data:
Right upper extremity duplex ultrasound 02/09/2024: ACUTE OCCLUSIVE DEEP VENOUS THROMBOSIS in the RIGHT SUBCLAVIAN VEIN.
CXR 02/10/2024: Unremarkable exam
Subjective Dataa
Subjective Data
Date of Service:
Date of Service: February 11, 2024
Chief Complaint: Drying Unit Felting Machine Operator Follow Up
Subjective:
Seen and evaluated this AM after going back to OR for balloon angioplasty with subsequent sheath removal. He feels well this AM. Right hand feels 'tight' this AM, but no numbness/tingling or weakness reported. HR 110, SpO2 98% on room air and BP
109/76. He is on heparin gtt. No CP, SOB, ELDER, abd pain, N/V/f/c.
Review of Systems
General: Other (Negative unless mentioned above)
Objective Data
Data Reviewed
Vital Signs / I&O / Oxygen:
Vital Signs
Temp Pulse Resp BP Pulse Ox
98.2 F 80 14 112/80 98
02/11/24 07:00 02/11/24 09:00 02/11/24 09:00 02/11/24 09:00 02/11/24 09:00
Intake and Output
02/10/24 02/11/24 02/12/24
06:59 06:59 06:59
Intake Total 318 / 318 1947 / 2057 360 / 360
Output Total 1075 / 1075 200 / 200
Balance 318 / 318 872 / 982 160 / 160
SaO2 98
Physical Exam
General: Respiratory Distress (negative), Comfortable, Chills (negative) and Sweats (negative)
HEENT: Normocephalic and Anicteric
Cardiovascular: S1-S2, Peripheral Edema (RUE +1 edema; remainder of extremities have no edema) and Other (Tachycardic)
Respiratory: Wheeze (negative), Crackles (negative), Rhonchi (negative) and Non-Labored Respirations
GI: Soft, Non Distended, Non Tender and Normal Bowel Sounds
Neurology: AO x 3 and Tremors (negative)
Skin: Warm, Dry, Cyanosis (negative) and Jaundice (negative)
Labs/Micro/Reports
Lab Data
02/11/24 21:15
Laboratory Results
02/10/24 02/10/24 02/10/24
17:18 17:18 21:31
PT 14.4 15.1 H
INR 1.14 1.21
APTT 36.9 H 38.5 H 38.9 H
02/11/24 02/11/24 02/11/24
03:28 09:43 15:15
PT 15.7 H 15.4 H Cancelled
INR 1.27 1.24 Cancelled
APTT 38.2 H 34.4 Cancelled
02/11/24
21:15
PT Cancelled
INR Cancelled
APTT Cancelled
[2024-02-11] MEDS: CATHFLO/ACTIVASE 16 MG INF CATH (08:30)
[2024-02-11] MEDS: CATHFLO/ACTIVASE 16 ML INF CATH (08:30)
--- NOTE | 2024-02-11 08:37 | W.PN.VS ---
Today's Communication / Plan
-
Seen and assessed with Dr. Tena
Assessment/Plan
-
POD #1 right subclavian vein thrombosis
Initiation of venous thrombolysis (4 Kittitian 20 cm infusion length Cragg Mele catheter)
Plan:
-N.p.o.
-Return to OR this morning for lysis check with Dr. Tena
Subjective Data
-
Date of Service: February 11, 2024
Patient seen at bedside this a.m.. No events overnight. Patient had complained of tightness to his right hand overnight which he feels is slightly better this morning. He has full motor function no numbness, or tingling, sensory intact. tPA
infusing
Objective Data
-
Vital Signs
Temp Pulse Resp BP Pulse Ox
98.2 F 74 14 109/76 98
02/11/24 07:00 02/11/24 08:00 02/11/24 08:00 02/11/24 08:00 02/11/24 08:00
Intake and Output
02/10/24 02/11/24 02/12/24
06:59 06:59 06:59
Intake Total 318 / 318 1947 / 2057 110 / 110
Output Total 1075 / 1075
Balance 318 / 318 872 / 982 110 / 110
Intake:
Oral fluids 240 / 240 480 / 480
IV fluids (Total) 1467 / 1577 110 / 110
Aleteplase 30 / 32 2 / 2
Hepain 75 / 80 5 / 5
Nss 1,000 ml @ 23 mls/hr INF 322 / 345 / 23
CATH .Q24H MARIAMA Rx#:[id number]
Nss 1,000 ml @ 80 mls/hr IV . 1040 / 1120 80 / 80
[id number] MARIAMA Rx#:[id number]
IV piggybacks / 78
Output:
Urine, Voided 1075 / 1075
Other:
Number of approximated LARGE 1
amounts of urine
Lab Results
02/11/24 03:
Calcium 9.0 mg/dl (8.4-10.2) 02/11/24:
Total Bilirubin 1.1 mg/dl (0.2-1.3) 02/11/24:
Direct Bilirubin 0.2 mg/dl (0.0-0.4) 02/11/24:
AST 28 U/L (17-59) 02/11/24:
ALT 20 U/L (0-50) 02/11/24:
Alkaline Phosphatase 74 U/L (38-126) 02/11/24:
Total Protein 6.4 g/dl (6.3-8.2) 02/11/24:
Albumin 4.1 g/dl (3.5-5.0) 02/11/24 03:28
Physical Exam
-
AAOx3
No tachypnea on room air
No tachycardia
Arm is soft, catheter sites clean, dry, intact. Hand is warm with bounding radial pulse
Sensory intact, motor intact
Fibrinogen 257
--- NOTE | 2024-02-11 09:33 | W.PN.HOSP.TC ---
Today's Communication/Plan
-
IV heparin drip. Vascular procedures ongoing.
Assessment / Plan
Assessment / Plan
Physical exam:
General: Acutely ill
HEENT: Normocephalic, Atraumatic and Moist Mucous Membranes
Respiratory: Clear to Auscultation; Negative Wheezes, Rales or Rhonchi
Cardiac: Regular Rhythm and S1/S2
GI: Soft, Nontender and Nondistended
Musculoskeletal: Engorgement of the superficial veins in the right arm. There is also right arm swelling and purple discoloration. No Clubbing, No Cyanosis and No Edema
Neuro: Awake, Alert and Oriented
Psych: Calm
A/P:
Acute occlusive right subclavian vein deep vein thrombosis:
Suspicion for thoracic outlet syndrome
Continue IV heparin drip
Vascular surgery consulted and plan for lysis catheter today
He might require surgery reeval after lysis
Will need genetic workup as outpatient for hypercoagulable state
We will consider doing Doppler of the lower extremities but will allow for procedures to be done first.
Might also require first rib resection in the near future
Discussed with hematology over the phone (Dr. Larry Lambert)-I will arrange for outpatient referral after acute hospitalization.
Plan to switch to DOAC after all procedures have been completed.
Discussed with at bedside
Possible thoracic outlet syndrome:
Might require CT surgery evaluation down the road
DVT prophylaxis:
Currently on treatment heparin drip
CODE STATUS:
Full code
Time spent 55 minutes
Anticipated Discharge: > 48 hours
Subjective/Interval History
-
Date of Service: February 11, 2024
Patient is some arm discomfort. No chest pain or shortness of breath. Afebrile
Objective Data
-
Labs:
Laboratory Results
02/10/24 02/11/24 02/11/24
21:31 03:28 03:28
WBC 5.1
Hgb 13.6 14.1 Cancelled
Hct 38.5 L 40.0
Plt Count 191
PT 15.1 H
INR 1.21
APTT 38.9 H
Sodium
Potassium
Chloride
Carbon Dioxide
BUN
Creatinine
Glucose
Calcium
Total Bilirubin
AST
ALT
Alkaline Phosphatase
02/11/24 02/11/24 02/11/24
03:28 03:28 09:15
WBC
Hgb Pending
Hct Cancelled Pending
Plt Count 179 Cancelled Pending
PT 15.7 H Pending
INR 1.27 Pending
APTT 38.2 H Pending
Sodium 140
Potassium 4.5
Chloride 106
Carbon Dioxide 23
BUN 14
Creatinine 0.9
Glucose 89
Calcium 9.0
Total Bilirubin 1.1
AST 28
ALT 20
Alkaline Phosphatase 74
02/11/24 02/11/24
15:15 21:15
WBC
Hgb Pending Pending
Hct Pending Pending
Plt Count Pending Pending
PT Pending Pending
INR Pending Pending
APTT Pending Pending
Sodium
Potassium
Chloride
Carbon Dioxide
BUN
Creatinine
Glucose
Calcium
Total Bilirubin
AST
ALT
Alkaline Phosphatase
Vital Signs:
Vital Signs
Temp Pulse Resp BP Pulse Ox
98.2 F 80 14 112/80 98
02/11/24 07:00 02/11/24 09:00 02/11/24 09:00 02/11/24 09:00 02/11/24 09:00
I&O
02/10/24 02/11/24 02/12/24
06:59 06:59 06:59
Intake Total 318 / 318 1946 / 2056 330 / 330
Output Total 1075 / 1075 200 / 200
Balance 318 / 318 872 / 982 130 / 130
[2024-02-11 10:00] LABS: Hematocrit 40.8 % (39.0-52.0); Hemoglobin 14.2 g/dL (13.0-18.0); Platelet Count 190 10^3/uL (130-400)
[2024-02-11 10:20] LABS: INR 1.24; PT 15.4 Sec (11.4-14.6)
[2024-02-11 10:21] LABS: APTT 34.4 Sec (23.4-35.0); Fibrinogen 251 MG/DL (199-459)
--- NOTE | 2024-02-11 10:44 | W.SUR.POST ---
Surgical Immediate Post Op
Note
Pre Op Diagnosis: Right subclavian vein thrombosis
Post Op Diagnosis: Same
Procedure Performed: Right upper extremity lysis catheter check, venogram, balloon angioplasty right subclavian vein
Primary Surgeon: Derrell
Anesthesia: Local and sedation
Estimated Blood Loss: Less than 2 cc
Fluids: See anesthesia flowsheet
Drains/Shunts: None
Specimens/Cultures: None
Doppler/Duplex/Angio (Y/N): Y
Complications: None
Operative Findings: Successful balloon angioplasty
--- NOTE | 2024-02-11 10:50 | OR.RPT ---
CT Surgery Operative Note
-
Pre-op Diagnosis: Right Upper Extremity Venous Thoracic Outlet Syndrome
Post-op Diagnosis: Same
Procedure: Right Upper Extremity Lysis Check, Balloon Venoplasty with 10x60 Price Clerk
Primary Surgeon: Moses Dove MD
Specimen: None
Cultures: None
Complications / Blood Loss: None
Findings:
The patient was brought to the operating room and placed on the operating room table in supine position. The Right arm catheter and sheath was prepped and draped in the usual sterile fashion. Venogram was performed through the sheath which
demonstrated an occluded RUE subclavian vein. The lysis catheter was removed over a Storq wire. The Wire was placed in the IVC. A 10x60 Price Clerk was then used to balloon the subclavian and innominate vein for prolonged inflations. Completion venogram
demonstrated a recannalized subclavian and innominate vein. The sheath and wire were removed and manual pressure was held.
--- NOTE | 2024-02-11 11:00 | PTCARENOTE ---
Received patient back from OR. Right brachial sheath pulled at 10:42. Hemostasis at 10:49. Patient back to room at 1100. Has good cap refill and pulse checks as charted in JUL. informed patient of 6 hour bedrest and order to keep extremity
extremely straight. arm board applied. Family updated on orders.
[2024-02-11] MEDS: HEPARIN 25000 UNITS/250 ML IV (11:31)
[2024-02-11 11:49] LABS: Hematocrit 40.1 % (39.0-52.0); Hemoglobin 13.8 g/dL (13.0-18.0); Mean Corp Hgb Conc. 34.4 g/dL (33.0-37.0); Mean Corpuscular Hgb 31.5 pg (27.0-31.0); Mean Corpuscular Volume 91.6 fL (80.0-94.0); Mean Platelet Volume 9.1 fL (7.4-10.4); Platelet Count 176 10^3/uL (130-400); Red Blood Cell Count 4.38 10^6/uL (4.70-6.10); Red Cell Dist. Width 11.2 % (11.5-14.5)
[2024-02-11 11:58] LABS: APTT 33.7 Sec (23.4-35.0); INR 1.26; PT 15.7 Sec (11.4-14.6)
[2024-02-11 12:08] LABS: Blood Urea Nitrogen 14 mg/dl (9-20); Calcium 8.9 mg/dl (8.4-10.2); Carbon Dioxide 24 mmol/L (22-30); Chloride 104 mmol/L (98-107); Estimated Creatinine Clearance 125 ml/min; Glucose 83 mg/dl (70-99); Potassium 4.2 mmol/L (3.5-5.1); Sodium 138 mmol/L (135-145); eGFR > 60.00
--- NOTE | 2024-02-11 14:46 | PTCARENOTE ---
[place] texted vascular RESIDENTIAL REAL ESTATE ASSISTANT that patient states his fingers feel slightly numb. Good pulse and movement remain. Heparin gtt has been running at 1300 units as ordered since return to floor. Veins in right forearm are more visible. Arm board loosened
and arm placed on pillow.
--- NOTE | 2024-02-11 15:11 | PTCARENOTE ---
Dixon texted Dr. Dove, patient was complaining of some returning numbness to right fingers. Veins are also a bit more visible. Patient does have arm board but physician said he could bend his arm at this point. Asked to place an issa wrap
from fingers to upper arm for some compression. will place orders and apply
[2024-02-11] MEDS: HEPARIN 1000 UNITS IV (19:51)
--- NOTE | 2024-02-11 20:00 | PTCARENOTE ---
software development advisor, pt aaox3, SR HR 90s, LAC IV WNL- Heparin gtt infusing per work list. RUE with issa wrap, +normal pulse, pt reports some mild sensation loss but improved after issa wrap applied earlier. RA Sat 96%. denies pain. POC discussed, call briceno
w/pt.
[2024-02-12] VITALS (16 sets, daily range): BP systolic 106–133; BP diastolic 64–96; BMI 23.4
--- NOTE | 2024-02-12 | PTCARENOTE ---
no change in pt assessment.
[2024-02-12 02:19] LABS: Hematocrit 37.2 % (39.0-52.0); Hemoglobin 13.4 g/dL (13.0-18.0); Mean Corpuscular Hgb 30.9 pg (27.0-31.0); Mean Corpuscular Volume 85.7 fL (80.0-94.0); Mean Platelet Volume 9.1 fL (7.4-10.4); Platelet Count 195 10^3/uL (130-400); Red Blood Cell Count 4.34 10^6/uL (4.70-6.10); Red Cell Dist. Width 11.2 % (11.5-14.5); White Blood Cell Count 8.3 10^3/uL (4.8-10.8)
[2024-02-12 02:39] LABS: APTT 140.8 Sec (23.4-35.0)
[2024-02-12] MEDS: HEPARIN 25000 UNITS/250 ML IV ×2 (04:00→23:32)
--- NOTE | 2024-02-12 04:00 | PTCARENOTE ---
no changes in pt assessment.
[2024-02-12 04:11] LABS: Blood Urea Nitrogen 20 mg/dl (9-20); Calcium 9.1 mg/dl (8.4-10.2); Carbon Dioxide 21 mmol/L (22-30); Chloride 106 mmol/L (98-107); Estimated Creatinine Clearance 125 ml/min; Glucose 118 mg/dl (70-99); Phosphorus 3.7 mg/dl (2.5-4.5); Potassium 3.9 mmol/L (3.5-5.1); Sodium 138 mmol/L (135-145); eGFR > 60.00
--- NOTE | 2024-02-12 08:55 | W.PN.INTV ---
Today's Communication / Plan
Recommendations
Catheter directed lysis has now stopped and yesterday he underwent balloon angioplasty of right subclavian vein/innominate vein with recanalization seen on venogram
Pain control
Heparin drip
Keep MAP >65
Keep SpO2 >90-94%
Patient is stable for downgrade out of ICU to telemetry - vascular surgery confirmed this. He will get right first rib resection on 02/14/2024. Wedding Planner/Pulmonary service will now sign off. Please reconsult if there are any additional
questions/concerns, or if patient's respiratory status deteriorates.
Assessment
-
Assessment: 43-year-old male with no significant past medical history presents with right forearm pain X 2 days. There was no reported preceding injury. It also was swollen. He also reported prominent veins in his right arm. He had some
associated numbness and tingling and also right-sided shoulder pain. Initial vitals in the ER showed he was afebrile to 98.3 �F, pulse rate 91, breathing at 16 breaths minute, BP 158/95 and saturating 100% on room air. Initial labs showed normal
WBC at 7.8, Hb 14.7, and INR 1.11. Right upper extremity ultrasound showed an acute occlusive DVT in the right subclavian vein. Right shoulder XR showed no rib fracture or pneumothorax. He was admitted to telemetry and started on a heparin drip.
Vascular surgery was consulted and there was concern for venous thoracic outlet syndrome with recommendation of venous thrombosis. Risks and benefits of vascular intervention were discussed and today he underwent catheter directed thrombolysis in
the right upper extremity. EBL was 2 cc with no immediate complications. Patient was transferred to the ICU postoperatively and now teacher instrumental services consulted for additional management/recommendations.
Chronic conditions SURGERY MANAGER: Non-contributory
Impression:
#Acute occlusive right subclavian DVT with suspected venous thoracic outlet syndrome s/p catheter directed thrombolysis (POD #2) with subclavian and innominate vein balloon angioplasty (POD#1)
#Right upper extremity pain/swelling due to above
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
Plan:
Postoperative management as per vascular surgery
He is s/p infusion of alteplase now stopped and underwent balloon angioplasty of right subclavian and innominate vein on 02/10 with venogram showing recanalization. Continue heparin gtt
It is suspected that he has venous thoracic outlet syndrome due to his right sided first rib causing mechanical obstruction; patient will likely have right first rib resection this upcoming Tuesday (02/13)
Maintain SpO2 >90-94%
prn nebulized bronchodilators - not currently bronchospastic
Incentive spirometry encouraged 10x per hour for at least 4 hrs a day
Aspiration precautions
Pain control
Neurovascular checks q4hr
Maintain MAP>65
Replete electrolytes with K>4, Mg>2
Maintain euglycemia with goal BG 140-180
Vascular surgery following-correspondence and operative notes reviewed
Transfuse blood products as needed to keep Hb>7g/dL, and plt>50k (given post-operative status)
Possible outpatient hematology evaluation for hypercoagulable workup
DVT prophylaxis
Early nutrition
Early mobilization
Patient is stable for downgrade out of ICU to telemetry. Vascular surgery to follow along. He will get right first rib resection on 02/14/2024. Wedding Planner/Pulmonary service will now sign off. Thank you for allowing us to be involved in the care
of this patient. Please reconsult if there are any additional questions/concerns, or if patient's respiratory status deteriorates.
Data:
Right upper extremity duplex ultrasound 02/09/2024: ACUTE OCCLUSIVE DEEP VENOUS THROMBOSIS in the RIGHT SUBCLAVIAN VEIN.
CXR 02/10/2024: Unremarkable exam
Total time spent today was 56 minutes for this encounter. Time includes reviewing laboratory test/imaging results, reviewing pertinent medical records, obtaining and reviewing medical history, performing an appropriate exam, ordering medications,
tests and procedures. Time also includes documentation of this encounter, coordinating patient care and communicating with other healthcare professionals. Total time does not include separately billed tests performed on this date of service.
Subjective Dataa
Subjective Data
Date of Service:
Date of Service: February 12, 2024
Chief Complaint: Wedding Planner Follow Up
Subjective:
Patient was seen and evaluated today at bedside. Heart rate 94, BP 122/82 and saturating 98% on room air. He has minimal complaints, saying that his right arm is still a little puffy but it is not painful, numb or weak. He denies shortness of
breath, chest pain, headache, nausea, fevers or chills.
Review of Systems
General: Other (Negative unless mentioned above)
Objective Data
Data Reviewed
Vital Signs / I&O / Oxygen:
Vital Signs
Temp Pulse Resp BP Pulse Ox
97.9 F 70 20 122/82 98
02/12/24 08:23 02/12/24 07:43 02/12/24 07:43 02/12/24 07:43 02/12/24 07:43
Intake and Output
02/11/24 02/12/24 02/13/24
06:59 06:59 06:59
Intake Total 1946 / 2056 713 / 847 508 / 508
Output Total 1075 / 1075 500 / 500
Balance 872 / 982 213 / 347 508 / 508
SaO2 98
Physical Exam
General: Respiratory Distress (negative), Comfortable, Chills (negative) and Sweats (negative)
HEENT: Normocephalic and Anicteric
Cardiovascular: S1-S2, Peripheral Edema (RUE +1 edema; remainder of extremities have no edema) and Other (normal heart rate)
Respiratory: Clear, Wheeze (negative), Crackles (negative), Rhonchi (negative) and Non-Labored Respirations
GI: Soft, Non Distended, Non Tender and Normal Bowel Sounds
Neurology: AO x 3 and Tremors (negative)
Skin: Warm, Dry, Cyanosis (negative) and Jaundice (negative)
Labs/Micro/Reports
Lab Data
02/12/24 02:11
02/12/24 02:11
Laboratory Results
02/11/24 02/11/24 02/11/24
09:43 11:39 15:15
PT 15.4 H 15.7 H Cancelled
INR 1.24 1.26 Cancelled
APTT 34.4 33.7 Cancelled
02/11/24 02/11/24 02/12/24
18:09 21:15 02:11
PT Cancelled
INR Cancelled
APTT 46.0 H Cancelled 140.8 H
--- NOTE | 2024-02-12 09:02 | PTCARENOTE ---
Updated patient assessment, vital sign trends ongoing. Assessment documented will continue to follow. Heparin drip continues with follow up PTT trends. Patient would like to go home today, but understands may have to stay for surgery later this
week. Review and reinforce teaching, events in ICU. Follow up movement protocols. Patient in and out of bed with supervision only. Review Heparin drip concerns and precautions. Continue with teaching and supportive cares.
--- NOTE | 2024-02-12 09:06 | W.PN.HOSP.TC ---
Today's Communication/Plan
-
Heparin drip. Upcoming surgery.
Assessment / Plan
Assessment / Plan
Physical exam:
General: Acutely ill
HEENT: Normocephalic, Atraumatic and Moist Mucous Membranes
Respiratory: Clear to Auscultation; Negative Wheezes, Rales or Rhonchi
Cardiac: Regular Rhythm and S1/S2
GI: Soft, Nontender and Nondistended
Musculoskeletal: Engorgement of the superficial veins in the right arm. There is also right arm swelling and purple discoloration. No Clubbing, No Cyanosis and No Edema
Neuro: Awake, Alert and Oriented
Psych: Calm
A/P:
Acute occlusive right subclavian vein deep vein thrombosis:
Suspicion for thoracic outlet syndrome
Continue IV heparin drip
Vascular surgery consulted and status post lysis catheter
He will require surgery reeval after lysis
Will need genetic workup as outpatient for hypercoagulable state
We would consider doing Doppler of the lower extremities but will allow for procedures to be done first.
Might also require first rib resection next week
Discussed with hematology over the phone (Dr. Larry Lambert)-I will arrange for outpatient referral after acute hospitalization.
Plan to switch to DOAC after all procedures have been completed.
Discussed with family at bedside yesterday
Possible thoracic outlet syndrome:
Might require CT surgery evaluation down the road
DVT prophylaxis:
Currently on treatment heparin drip
CODE STATUS:
Full code
Anticipated Discharge: > 48 hours
Subjective/Interval History
-
Date of Service: February 12, 2024
Patient complains of some paresthesia on the right arm have been improving. Right arm discomfort also improving. No chest pain or shortness of breath. Afebrile
Objective Data
-
Labs:
Laboratory Results
02/12/24 02/12/24 02/12/24
02:11 02:11 09:45
WBC 8.3
Hgb 13.4
Hct 37.2 L
Plt Count 195
PT Pending
INR Pending
APTT 140.8 H Pending Pending
Sodium 138
Potassium 3.9
Chloride 106
Carbon Dioxide 21 L
BUN 20
Creatinine 0.8
Glucose 118 H
Calcium 9.1
Vital Signs:
Vital Signs
Temp Pulse Resp BP Pulse Ox
97.9 F 70 20 122/82 98
02/12/24 08:23 02/12/24 07:43 02/12/24 07:43 02/12/24 07:43 02/12/24 07:43
I&O
02/11/24 02/12/24 02/13/24
06:59 06:59 06:59
Intake Total 1946 713 / 847 508 / 508
Output Total 1075 / 1075 500 / 500
Balance 872 / 982 213 / 347 508 / 508
[2024-02-12 10:42] LABS: APTT 67.1 Sec (23.4-35.0)
--- NOTE | 2024-02-12 12:12 | W.PN.VS ---
Today's Communication / Plan
-
tx to floor
continue heparin
Assessment/Plan
-
POD #3 right subclavian vein thrombosis
Plan:
tx to floor
heparin drip
OR tuesday for first rib
Subjective Data
-
Date of Service: February 12, 2024
NAEO. resting comfortably. Mininmal numbness in arm. no swelling
Objective Data
-
Vital Signs
Temp Pulse Resp BP Pulse Ox
97.9 F 86 17 122/96 98
02/12/24 08:23 02/12/24 10:00 02/12/24 10:00 02/12/24 09:30 02/12/24 10:43
Intake and Output
02/11/24 02/12/24 02/13/24
06:59 06:59 06:59
Intake Total 1946 713 / 847 522 / 522
Output Total 1075 / 1075 500 / 500
Balance 872 / 982 213 / 347 522 / 522
Intake:
Oral fluids 480 / 480 480 / 480
IV fluids (Total) 1467 / 1577 713 / 727 42 / 42
Aleteplase 30 / 32 8 / 8
Hepain 75 / 80 293 / 307 42 / 42
Nss 1,000 ml @ 23 mls/hr INF 322 / 345 92 / 92
CATH .Q24H [facility] Rx#:[id number]
Nss 1,000 ml @ 80 mls/hr IV . 1040 / 1120 320 / 320
[id number] [facility] Rx#:[id number]
Output:
Urine, Voided 1075 / 1075 500 / 500
Other:
Number of approximated LARGE 1 1
amounts of urine
Lab Results
02/12/24 02:11
02/12/24 02:11
Calcium 9.1 mg/dl (8.4-10.2) 02/12/24 02:11
Phosphorus 3.7 mg/dl (2.5-4.5) 02/12/24 02:11
Magnesium 2.0 mg/dl (1.6-2.3) 02/12/24 02:11
Total Bilirubin 1.1 mg/dl (0.2-1.3) 02/11/24 03:28
Direct Bilirubin 0.2 mg/dl (0.0-0.4) 02/11/24 03:28
AST 28 U/L (17-59) 02/11/24 03:28
ALT 20 U/L (0-50) 02/11/24 03:28
Alkaline Phosphatase 74 U/L (38-126) 02/11/24 03:28
Total Protein 6.4 g/dl (6.3-8.2) 02/11/24 03:28
Albumin 4.1 g/dl (3.5-5.0) 02/11/24 03:28
Physical Exam
-
RUE: non swelling. no hematoma, palpable radial
--- NOTE | 2024-02-12 15:13 | PTCARENOTE ---
Assessment remains unchanged. Vascular in to follow up for plan of surgery on Tuesday. Patient in and out this afternoon. Updated plan of cares. Continue ongoing vascualr checks and follow up.
[2024-02-12 18:12] LABS: APTT 85.4 Sec (23.4-35.0)
--- NOTE | 2024-02-12 19:35 | PTCARENOTE ---
pt to unit at 1833 Heparin gtt 15ml/hr via 20g. Aox3. + radial pulses. dressing is CDI with no edema/hematoma. Lungs CTA, +pedals H20 and blankets offered. VSS.
[2024-02-13 00:07] LABS: APTT 86.4 Sec (23.4-35.0)
[2024-02-13 03:19] VITALS: BP 113/77
[2024-02-13 06:41] LABS: Hematocrit 42.5 % (39.0-52.0); Hemoglobin 14.7 g/dL (13.0-18.0); Mean Corp Hgb Conc. 34.6 g/dL (33.0-37.0); Mean Corpuscular Hgb 30.5 pg (27.0-31.0); Mean Corpuscular Volume 88.2 fL (80.0-94.0); Mean Platelet Volume 9.4 fL (7.4-10.4); Platelet Count 229 10^3/uL (130-400); Red Blood Cell Count 4.82 10^6/uL (4.70-6.10); Red Cell Dist. Width 11.6 % (11.5-14.5); White Blood Cell Count 6.5 10^3/uL (4.8-10.8)
[2024-02-13 06:52] LABS: APTT 127.5 Sec (23.4-35.0)
[2024-02-13 07:20] LABS: Blood Urea Nitrogen 15 mg/dl (9-20); Calcium 9.5 mg/dl (8.4-10.2); Carbon Dioxide 25 mmol/L (22-30); Chloride 103 mmol/L (98-107); Estimated Creatinine Clearance 112 ml/min; Glucose 89 mg/dl (70-99); Magnesium 2.1 mg/dl (1.6-2.3); Phosphorus 4.3 mg/dl (2.5-4.5); Potassium 4.3 mmol/L (3.5-5.1); Sodium 142 mmol/L (135-145); eGFR > 60.00
--- NOTE | 2024-02-13 07:42 | W.PN.VS ---
Addendum entered and electronically signed by Noman Nñuez MD 02/13/24 07:49:
Seen and examined with MANISH Finnegan. Agree with findings as noted below. Patient without complaints. Right upper extremity significantly decreased swelling. Puncture site flat. Plan/as discussed and noted below. Discussed briefly procedure of first
rib resection/scalenectomy with patient.
Original Note:
Today's Communication / Plan
-
Patient seen and examined at bedside with Dr. Noman Nuñez, below plan reviewed with attending
Assessment/Plan
-
POD #4 right subclavian vein thrombosis
Plan:
N.p.o. at midnight for first rib resection tomorrow
Subjective Data
-
Date of Service: February 13, 2024
Patient seen and examined at bedside offers no complaints, reports vast improvement in right upper extremity swelling. Denies nausea, vomiting, fever, and chills.
Objective Data
-
Vital Signs
Temp Pulse Resp BP Pulse Ox
97.7 F 74 16 113/77 99
02/13/24 03:19 02/13/24 03:19 02/13/24 03:19 02/13/24 03:19 02/13/24 03:19
Intake and Output
02/12/24 02/13/24 02/14/24
06:59 06:59 06:59
Intake Total 713 / 847 1871
Output Total 500 / 500
Balance 213 / 347 1871
Intake:
Oral fluids 1560 / 1560
IV fluids (Total) 713 / 727 312 / 312
Aleteplase
Hepain 293 / 307 132 / 132
Nss 1,000 ml @ 23 mls/hr INF 92 / 92
CATH .Q24H [facility] Rx#:[id number]
Nss 1,000 ml @ 80 mls/hr IV . 320 / 320
[id number] [facility] Rx#:[id number]
Output:
Urine, Voided 500 / 500
Other:
Number of approximated MODERATE 2
amounts of urine
Number of approximated LARGE 1 1
amounts of urine
Lab Results
02/13/24 04:40
02/13/24 04:40
Calcium 9.5 mg/dl (8.4-10.2) 02/13/24 04:40
Phosphorus 4.3 mg/dl (2.5-4.5) 02/13/24 04:40
Magnesium 2.1 mg/dl (1.6-2.3) 02/13/24 04:40
Total Bilirubin 1.1 mg/dl (0.2-1.3) 02/11/24 03:28
Direct Bilirubin 0.2 mg/dl (0.0-0.4) 02/11/24 03:28
AST 28 U/L (17-59) 02/11/24 03:28
ALT 20 U/L (0-50) 02/11/24 03:28
Alkaline Phosphatase 74 U/L (38-126) 02/11/24 03:28
Total Protein 6.4 g/dl (6.3-8.2) 02/11/24 03:28
Albumin 4.1 g/dl (3.5-5.0) 02/11/24 03:28
Physical Exam
-
AAOx3, no apparent distress
No tachycardia
No dyspnea on room air
RUE: non swelling. no hematoma, palpable radial
[2024-02-13 07:58] VITALS: BP 137/86
[2024-02-13 11:27] VITALS: BP 135/96
--- NOTE | 2024-02-13 14:18 | W.PN.HOSP.TC ---
Today's Communication/Plan
-
N.p.o. after midnight
Assessment / Plan
Assessment / Plan
Gen-AAOx3, NAD
HEENT-NC, AT, anicteric, clear oral mm
Neck-supple
CV-reg, no M, +S1/S2
Lungs-clear B/L
Abd-soft, NT, ND
Ext-no edema
Musculoskeletal-no cyanosis, clubbing
Skin-warm and dry
Neuro-grossly non-focal
Psych-calm, cooperative
Acute occlusive right subclavian vein deep vein thrombosis:
Suspicion for venous thoracic outlet syndrome
Continue IV heparin drip
Plan for right first rib resection and scalenectomy 02/13 per vascular surgery. N.p.o. after midnight.
DVT prophylaxis:
Currently on treatment heparin drip
CODE STATUS:
Full code
Anticipated Discharge: > 48 hours
Subjective/Interval History
-
Date of Service: February 13, 2024
Patient seen and examined. Very anxious and worked up over blood draws.
Objective Data
-
Labs:
Laboratory Results
02/13/24 02/13/24
04:40 13:20
WBC 6.5
Hgb 14.7
Hct 42.5
Plt Count 229
APTT 127.5 H Pending
Sodium 142
Potassium 4.3
Chloride 103
Carbon Dioxide 25
BUN 15
Creatinine 0.9
Glucose 89
Calcium 9.5
Vital Signs:
Vital Signs
Temp Pulse Resp BP Pulse Ox
98.4 F 94 14 135/96 99
02/13/24 11:27 02/13/24 11:27 02/13/24 11:27 02/13/24 11:27 02/13/24 11:27
I&O
02/12/24 02/13/24 02/14/24
06:59 06:59 06:59
Intake Total 713 / 847 1871
Output Total 500 / 500
Balance 213 / 347 1871
Review of Systems
-
History Source: Patient
All other systems: Reviewed and negative
[2024-02-13] MEDS: HEPARIN 25000 UNITS/250 ML IV (14:19)
--- NOTE | 2024-02-13 14:31 | PTCARENOTE ---
Pt c/o new onset numbness to L middle finger. + palpable L radial pulse, cap refill <2 secs, LUE pink and warm to touch. No edema, Pt with equal +5 strength b/l hand grasps. E Kain Dawn made aware. Care remains ongoing.
[2024-02-13 14:59] LABS: APTT 70.6 Sec (23.4-35.0)
--- NOTE | 2024-02-13 15:10 | CM ---
Case management following for discharge planning
Chart reviewed
For right first rib resection and scalenectomy 02/13 per vascular surgery
NPO after midnight
CM remains available for discharge needs
Plan - anticipate home no needs when medically stable
[2024-02-13 15:38] VITALS: BP 138/101
[2024-02-13 19:49] VITALS: BP 115/79
[2024-02-13 21:47] LABS: APTT 63.1 Sec (23.4-35.0)
[2024-02-13 23:40] VITALS: BP 106/68
[2024-02-14] VITALS (26 sets, daily range): BP systolic 40–142; BP diastolic 73–95
[2024-02-14 03:57] LABS: APTT 119.1 Sec (23.4-35.0)
[2024-02-14 05:45] LABS: Hematocrit 41.8 % (39.0-52.0); Mean Corp Hgb Conc. 35.9 g/dL (33.0-37.0); Mean Corpuscular Volume 89.1 fL (80.0-94.0); Mean Platelet Volume 9.1 fL (7.4-10.4); Platelet Count 198 10^3/uL (130-400); Red Blood Cell Count 4.69 10^6/uL (4.70-6.10); Red Cell Dist. Width 11.6 % (11.5-14.5); White Blood Cell Count 5.7 10^3/uL (4.8-10.8)
[2024-02-14 06:08] LABS: INR 1.12; PT 14.2 Sec (11.4-14.6)
[2024-02-14 06:11] LABS: APTT 139.3 Sec (23.4-35.0)
[2024-02-14 06:42] LABS: Blood Urea Nitrogen 15 mg/dl (9-20); Calcium 9.7 mg/dl (8.4-10.2); Carbon Dioxide 23 mmol/L (22-30); Chloride 103 mmol/L (98-107); Estimated Creatinine Clearance 112 ml/min; Glucose 101 mg/dl (70-99); Potassium 4.2 mmol/L (3.5-5.1); Sodium 139 mmol/L (135-145); eGFR > 60.00
[2024-02-14] MEDS: BACTROBAN 2% OINTMENT 1 APPLIC NASAL (10:18)
[2024-02-14] MEDS: PERIDEX 0.12% ORAL RINSE 15 ML PO (10:18)
--- NOTE | 2024-02-14 11:10 | PTCARENOTE ---
Pt en route to OR on stretcher
--- NOTE | 2024-02-14 11:47 | PTCARENOTE ---
Dr Dallas texted to see Pt at 1125. Still waiting for his arrival.
--- NOTE | 2024-02-14 12:03 | W.PN.HOSP.TC ---
Today's Communication/Plan
-
OR today
Assessment / Plan
Assessment / Plan
Gen-AAOx3, NAD
HEENT-NC, AT, anicteric, clear oral mm
Neck-supple
CV-reg, no M, +S1/S2
Lungs-clear B/L
Abd-soft, NT, ND
Ext-no edema
Musculoskeletal-no cyanosis, clubbing
Skin-warm and dry
Neuro-grossly non-focal
Psych-calm, cooperative
Acute occlusive right subclavian vein deep vein thrombosis:
Suspicion for venous thoracic outlet syndrome
Continue IV heparin drip
Plan for right first rib resection and scalenectomy today per vascular surgery.
DVT prophylaxis:
Currently on treatment heparin drip
CODE STATUS:
Full code
Anticipated Discharge: 24 - 48 hours
Subjective/Interval History
-
Date of Service: February 14, 2024
Patient seen/examined, no complaints.
Objective Data
-
Labs:
Laboratory Results
02/14/24 02/14/24
03:33 05:36
WBC 5.7
Hgb 15.0
Hct 41.8
Plt Count 198
PT 14.2
INR 1.12
APTT 119.1 H 139.3 H
Sodium 139
Potassium 4.2
Chloride 103
Carbon Dioxide 23
BUN 15
Creatinine 0.9
Glucose 101 H
Calcium 9.7
Vital Signs:
Vital Signs
Temp Pulse Resp BP Pulse Ox
97.9 F 86 17 120/89 98
02/14/24 07:00 02/14/24 11:30 02/14/24 11:30 02/14/24 11:30 02/14/24 11:30
I&O
02/13/24 02/14/24 02/15/24
06:59 06:59 06:59
Intake Total 1871 1431.5 / 1431.5
Balance 1871 143. / 1431.5
Review of Systems
-
History Source: Patient
All other systems: Reviewed and negative
--- NOTE | 2024-02-14 13:29 | PTCARENOTE ---
Pt seen in CCL recovery area by Dr Dallas. Waiting for Dr Rizzo to finish previous procedure to see pt.
--- NOTE | 2024-02-14 13:37 | PTCARENOTE ---
Pt seen and consented by Dr Rizzo.
--- NOTE | 2024-02-14 14:55 | CM ---
Case management following for discharge planning
Chart reviewed
Or today for right first rib resection and scalenectomy
CM will following for d/c needs
Plan - TBD post-op
--- NOTE | 2024-02-14 17:31 | OR.RPT ---
Operative Report
Operative Report
Date of Operation: 02/14/2024
Pre Op Diagnosis: RIGHT venous thoracic outlet syndrome
Post Op Diagnosis: RIGHT venous thoracic outlet syndrome
Procedure:
1.) RIGHT transaxillary first rib resection with anterior scalenectomy
2.) Right upper extremity venogram
3.) Central venogram
4.) Mechanical thrombectomy of right subclavian vein re-occlusion using AngioJet Zelante catheter
5.) Balloon angioplasty of right subclavian vein (10 mm x 40 mm; 12 mm x 40 mm angioplasty balloons)
6.) Ultrasound-guided percutaneous access to the right basilic vein
Surgeon: Julián Rizzo III, MD
Federal Mediation Commissioner: Evelia Kulkarni MD PGY-8
Anesthesia: General
Complications: None
Estimated Blood Loss: 25 cc
History and Indications for Procedure: 43-year-old male who presented with occlusive subclavian vein DVT. He underwent successful thrombolysis and we brought him to the operating room today for definitive surgical decompression of the thoracic
outlet with a diagnosis of thoracic outlet syndrome, venous subtype.
Procedure in Detail: Micky Granger was correctly identified and placed supine on the operating table. After adequate induction of anesthesia he was positioned into a lateral decubitus position on a beanbag with the right chest and axilla up and
in the surgical field. All pressure points were closely inspected and padded with the assistance of the nursing and anesthesia staff. The right arm, axilla and chest were prepped and draped in the usual sterile fashion. Preoperative antibiotics
were administered. A timeout procedure was performed with the nursing and anesthesia staff confirming the patients identity as well as the nature and laterality of the procedure.
At the base of the right axillary hairline a horizontal incision was made. Dissection was carried straight down to the chest wall using electrocautery. I then tunneled up towards the first rib using blunt dissection, staying right along the chest
wall. Using a combination of electrocautery and Kittner blunt dissection the subclavian vein, subclavian artery and anterior scalene muscle were exposed clearly over the superior margin of the first rib. Using a periosteal elevator and blunt finger
dissection the inferior margin of the first rib was exposed. Blunt finger dissection was used to gently sweep the pleura away from the under surface of the first rib. A right angle clamp was used with electrocautery to divide the anterior scalene
muscle at its insertion onto the first fib. The anterior scalene muscle appeared to be hypertrophied and somewhat fibrotic on dissection. The anterior and posterior cuts were made on the first rib with the ribbon blockmaker and the intervening segment of
rib was removed and sent to pathology. Additional bone margin was taken anteriorly and posteriorly on the first rib with a rongeur and the space was widely decompressed. The bone edges anteriorly and posteriorly were softened with a rasp. The vein
was closely inspected and several adhesive bands were lysed with sharp dissection. The space was closely inspected and hemostasis was achieved. It was clear on inspection that there was a hole in the pleura, communicating with the right chest.
Therefore a 20 Irish chest tube was placed through a separate small skin incision inferiorly. The chest tube was positioned carefully and sewn in place at 12 cm at the skin. A BRITTNI drain was left high in the axilla and brought out through a
separate stab incision at the skin. The chest tube was connected to a Pleur-evac on -20 suction. The BRITTNI drain was connected to the bulb. The wound was then closed in multiple layers and a sterile dressing applied.
The patient was then repositioned in a supine position with his right arm abducted 90 degrees. The right arm was then prepped and draped in the usual sterile fashion. We identified the basilic vein over the medial aspect of the upper arm. Under
ultrasound guidance we punctured the basilic vein under ultrasound guidance using a micropuncture needle. We then upsized to a 5 Irish sheath over a Seleroson wire. A 5 Irish glide catheter was advanced to the axillary vein and a venogram was
performed. Nonocclusive thrombus was identified in the axillary vein. The subclavian vein was occluded. Significant collateralization was identified around the subclavian vein occlusion and flow in the brachiocephalic vein was identified.
Systemic heparin was administered. Using a glide catheter and Glidewire we were able to navigate through the subclavian vein occlusion and into the SVC. I exchanged out for a Storq wire. I upsized to an 8 Irish sheath. Mechanical thrombectomy
was performed on the subclavian vein occlusion using the AngioJet Zelante catheter. Subsequent balloon angioplasty was performed on subclavian vein using a 10 mm x 40 mm angioplasty balloon first followed by a 12 mm x 40 mm angioplasty balloon.
Completion venogram demonstrated an excellent technical result with a widely patent axillary vein, subclavian vein and central venous system with brisk flow.
Satisfied with this result we then concluded the procedure. The wire an 8 Irish sheath were removed from the puncture site. Direct manual pressure was held over the puncture site and hemostasis was achieved. A sterile dressing was applied. The
patient's arm was wrapped in an Harsh wrap from his fingers to his shoulder. The patient tolerated the procedure well and was taken to the PACU in stable condition.
Attestation: I was present and responsible for the entire procedure
Signed:
Julián Rizzo III, MD
[facility]
[phone] (cell)
[2024-02-14 17:42] LABS: Hematocrit 45.1 % (39.0-52.0); Hemoglobin 15.6 g/dL (13.0-18.0); Mean Corp Hgb Conc. 34.6 g/dL (33.0-37.0); Mean Corpuscular Hgb 30.7 pg (27.0-31.0); Mean Corpuscular Volume 88.8 fL (80.0-94.0); Mean Platelet Volume 9.1 fL (7.4-10.4); Platelet Count 230 10^3/uL (130-400); Red Blood Cell Count 5.08 10^6/uL (4.70-6.10); Red Cell Dist. Width 11.7 % (11.5-14.5); White Blood Cell Count 14.1 10^3/uL (4.8-10.8)
[2024-02-14] MEDS: DILAUDID 0.5 MG IV (17:48)
[2024-02-14] MEDS: ZOFRAN 4 MG IV (17:52)
[2024-02-14] MEDS: DILAUDID PCA 30 IV (18:17)
[2024-02-14] MEDS: NSS 1000 IV (19:01)
[2024-02-14] MEDS: COMPAZINE 5 MG IV (19:58)
--- NOTE | 2024-02-14 20:00 | PTCARENOTE ---
Patient received from PACU, AAOX3, diaphoretic. NSR on monitor, blood pressure as documented. Palpable pulses throughout, trace edema to right hand. Lungs diminished, pulse ox 98-100% on 2L. Right lateral chest tube to -20 cm wall suction, no
air leak or crepitus noted. Dressing clean dry and intact. Abdomen soft with positive bowel sounds. Patient complaining of nausea, medicated per MAR. Right arm with issa, right axilla incision approximated, mild ecchymosis noted. #20 g in LAC
flushed and patent. #20 g in LFA with IVF and dilaudid CLEANER AND PRESSER infusing as ordered. CHG bath given. Plan of care discussed, call briceno within reach
[2024-02-14] MEDS: OFIRMEV 100 IV (20:57)
[2024-02-14 21:42] LABS: Hematocrit 41.3 % (39.0-52.0); Hemoglobin 14.7 g/dL (13.0-18.0); Mean Corp Hgb Conc. 35.6 g/dL (33.0-37.0); Mean Corpuscular Hgb 30.8 pg (27.0-31.0); Mean Corpuscular Volume 86.6 fL (80.0-94.0); Platelet Count 213 10^3/uL (130-400); Red Blood Cell Count 4.77 10^6/uL (4.70-6.10); Red Cell Dist. Width 11.5 % (11.5-14.5); White Blood Cell Count 13.8 10^3/uL (4.8-10.8)
[2024-02-14 22:02] LABS: Blood Urea Nitrogen 20 mg/dl (9-20); Calcium 9.4 mg/dl (8.4-10.2); Carbon Dioxide 22 mmol/L (22-30); Chloride 101 mmol/L (98-107); Estimated Creatinine Clearance 100 ml/min; Glucose 189 mg/dl (70-99); Potassium 4.8 mmol/L (3.5-5.1); Sodium 136 mmol/L (135-145); eGFR > 60.00
--- NOTE | 2024-02-14 23:05 | PTCARENOTE ---
Updated Dr. Rizzo with BRITTNI output and chest tube, order received
[2024-02-14] MEDS: HEPARIN 25000 UNITS/250 ML IV (23:17)
--- NOTE | 2024-02-14 23:29 | PTCARENOTE ---
Heparin gtt restarted as ordered, patient updated on plan of care, resting with eyes closed. Call briceno within reach
[2024-02-15] VITALS (48 sets, daily range): BP systolic 92–132; BP diastolic 68–96; PULSE 99; O2SAT 99; BMI 23.1
[2024-02-15] MEDS: OFIRMEV 100 IV ×4 (02:56→21:55)
--- NOTE | 2024-02-15 03:54 | PTCARENOTE ---
Patient reassessed, Ofirmev given for pain, resting with eyes closed. Has not used CONTRACTS MANAGER. Right radial pulse remains palpable. Dressing clean dry and intact. Chest tube has no drainage. Voided tea colored urine. No other changes in assessment
[2024-02-15] MEDS: ZOFRAN 4 MG IV (05:24)
[2024-02-15 05:39] LABS: Hematocrit 41.4 % (39.0-52.0); Hemoglobin 14.5 g/dL (13.0-18.0); Mean Corpuscular Volume 88.5 fL (80.0-94.0); Mean Platelet Volume 8.7 fL (7.4-10.4); Platelet Count 193 10^3/uL (130-400); Red Blood Cell Count 4.68 10^6/uL (4.70-6.10); Red Cell Dist. Width 11.4 % (11.5-14.5); White Blood Cell Count 11.3 10^3/uL (4.8-10.8)
[2024-02-15 05:46] LABS: INR 1.09; PT 13.9 Sec (11.4-14.6)
[2024-02-15 05:48] LABS: APTT 49.8 Sec (23.4-35.0)
[2024-02-15 06:06] LABS: Blood Urea Nitrogen 18 mg/dl (9-20); Calcium 9.5 mg/dl (8.4-10.2); Carbon Dioxide 21 mmol/L (22-30); Chloride 103 mmol/L (98-107); Estimated Creatinine Clearance 112 ml/min; Glucose 124 mg/dl (70-99); Potassium 4.8 mmol/L (3.5-5.1); Sodium 138 mmol/L (135-145); eGFR > 60.00
[2024-02-15] MEDS: NSS 1000 IV (06:07)
--- NOTE | 2024-02-15 06:32 | PTCARENOTE ---
PTT noted, heparin gtt titrated per protocol. PCXR complete. Patient used CUSTOMER SOLUTIONS COORDINATOR for pain, resting while watching TV, call briceno in reach
--- NOTE | 2024-02-15 07:29 | W.PN.INTV ---
Today's Communication / Plan
Recommendations
s/p 1st rib resection
chest tube to WTS, can clamp and discontinue if CXR stable
stable on RA, encourage ambulation/OOB
furhter postop care per team
if doing well, can likely transfer to tele
Assessment
-
43-year-old male with no significant past medical history presents with right forearm pain X 2 days. There was no reported preceding injury. It also was swollen. He also reported prominent veins in his right arm. He had some associated numbness
and tingling and also right-sided shoulder pain. Initial vitals in the ER showed he was afebrile to 98.3 �F, pulse rate 91, breathing at 16 breaths minute, BP 158/95 and saturating 100% on room air. Initial labs showed normal WBC at 7.8, Hb 14.7,
and INR 1.11. Right upper extremity ultrasound showed an acute occlusive DVT in the right subclavian vein. Right shoulder XR showed no rib fracture or pneumothorax. He was admitted to telemetry and started on a heparin drip. Vascular surgery was
consulted and there was concern for venous thoracic outlet syndrome with recommendation of venous thrombosis. Risks and benefits of vascular intervention were discussed and today he underwent catheter directed thrombolysis in the right upper
extremity. EBL was 2 cc with no immediate complications. Patient was transferred to the ICU postoperatively and now nutrition director services consulted for additional management/recommendations.
TOS s/p 1st rib resection 02/14/24
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
Right upper extremity pain/swelling due to above
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
Osteoarthritis in right acromioclavicular joint
Plan
Postoperative management as per vascular surgery, s/p rib resection 02/14/24
s/p chest tube for PTX, to waterseal now
can likely clamp and discontinue following CXR
s/p infusion of alteplase/balloon angioplasty of right subclavian and innominate vein on 02/11/24
Vasc following
Currently stable on RA
Maintain SpO2 >90-94%
prn nebulized bronchodilators - not currently bronchospastic
Incentive spirometry encouraged 10x per hour for at least 4 hrs a day
Aspiration precautions
Pain control
Neurovascular checks q4hr
Maintain MAP>65
Replete electrolytes with K>4, Mg>2
Maintain euglycemia with goal BG 140-180
Vascular surgery following-correspondence and operative notes reviewed
Transfuse blood products as needed to keep Hb>7g/dL, and plt>50k (given post-operative status)
Possible outpatient hematology evaluation for hypercoagulable workup
DVT prophylaxis
Early nutrition
Early mobilization
Diagnostic Data
Right upper extremity duplex ultrasound 02/09/2024: ACUTE OCCLUSIVE DEEP VENOUS THROMBOSIS in the RIGHT SUBCLAVIAN VEIN.
CXR 02/10/2024: Unremarkable exam
-----
Critical Care time 45 mins -- The patient is admitted for acute critical illness for the treatment of vital organ failure and/or prevention of further life-threatening conditions. Total care includes time spent in review of history, physical exam,
medications, hemodynamic/ventilator parameters, laboratory data, imaging and discussion with house staff, pharmacy, respiratory therapy, allied health teacher, and nursing.
Subjective Dataa
Subjective Data
Date of Service:
Date of Service: February 15, 2024
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
Subjective:
OR yesterday, observed overnight
stable on RA
chest tube to waterseal this AM
Objective Data
Data Reviewed
Vital Signs / I&O / Oxygen:
Vital Signs
Temp Pulse Resp BP Pulse Ox
97.8 F 97 16 116/83 100
02/15/24 04:00 02/15/24 05:30 02/15/24 05:30 02/15/24 05:30 02/15/24 05:30
Intake and Output
02/14/24 02/15/24 02/16/24
06:59 06:59 06:59
Intake Total 1431.5 / 1431.5 1357 / 1357
Output Total 745 / 745
Balance 1431.5 / 1431.5 612 / 612
SaO2 100
Nasal Cannula flow liters per 2
minute
Physical Exam
General: Respiratory Distress (negative), Comfortable, Chills (negative) and Sweats (negative)
HEENT: Normocephalic, Anicteric and Moist Mucous Membranes
Cardiovascular: S1-S2, Regular Rhythm and Other (normal heart rate)
Respiratory: Clear, Wheeze (negative), Crackles (negative), Rhonchi (negative), Non-Labored Respirations and Chest Tube
GI: Soft, Non Distended, Non Tender and Normal Bowel Sounds
Neurology: Awake, Alert, AO x 3, No Motor Deficits and Tremors (negative)
Skin: Warm, Dry, Cyanosis (negative) and Jaundice (negative)
Labs/Micro/Reports
Lab Data
02/15/24 05:28
02/15/24 05:28
Laboratory Results
02/14/24 02/15/24
17:27 05:28
PT 13.9
INR 1.09
APTT 143.0 H 49.8 H
--- NOTE | 2024-02-15 07:45 | PTCARENOTE ---
Received patient from mine shifter. Patient is AAOx4. Sr on monitor. Sinus tach at times. On 2L, took off nasal cannula, now on room air. 99%. Patient has right sided Chest tube to suction. Lungs clear to auscultation. Right BRITTNI drain bulb with
bloody drainage noted. Patient is on regular diet, using urinal at bedside. Lateral incision under right axilla. Heparin gtt infusing into left wrist INT. Will review orders.
--- NOTE | 2024-02-15 07:45 | W.PN.HOSP.TC ---
Today's Communication/Plan
-
Await chest x-ray read
Assessment / Plan
Assessment / Plan
Gen-AAOx3, NAD
HEENT-NC, AT, anicteric, clear oral mm
Neck-supple
CV-reg, no M, +S1/S2
Lungs-clear B/L
Abd-soft, NT, ND
Ext-no edema
Musculoskeletal-no cyanosis, clubbing, right upper extremity Harsh wrap
Skin-warm and dry, right sided chest tube
Neuro-grossly non-focal
Psych-calm, cooperative
Acute occlusive right subclavian vein deep vein thrombosis -due to venous thoracic outlet syndrome.
Underwent right transaxillary first rib resection with anterior scalenectomy 02/13, balloon angioplasty of right subclavian vein, mechanical thrombectomy of right subclavian vein reocclusion.
Continue IV heparin drip
Transition to Eliquis when okay with surgical team.
Right pneumothorax -noted in the OR 02/13. Chest tube in place. Repeat chest x-ray looks improved today, await official read. On Dilaudid CODING AUDITOR for pain.
Hyperglycemia -check hemoglobin A1c.
DVT prophylaxis:
Currently on treatment heparin drip
CODE STATUS:
Full code
Anticipated Discharge: 24 - 48 hours
Subjective/Interval History
-
Date of Service: February 15, 2024
Patient seen and examined, complaining of right-sided chest pain related to chest tube.
Objective Data
-
Labs:
Laboratory Results
02/14/24 02/14/24 02/15/24
19:55 21:37 05:28
WBC 13.8 H 11.3 H
Hgb 14.7 14.5
Hct 41.3 41.4
Plt Count 213 193
PT 13.9
INR 1.09
APTT 49.8 H
Sodium Cancelled 136 138
Potassium Cancelled 4.8 4.8
Chloride Cancelled 101 103
Carbon Dioxide Cancelled 22 21 L
BUN Cancelled 20 18
Creatinine Cancelled 1.0 0.9
Glucose Cancelled 189 H 124 H
Calcium Cancelled 9.4 9.5
02/15/24
12:30
WBC
Hgb
Hct
Plt Count
PT
INR
APTT Pending
Sodium
Potassium
Chloride
Carbon Dioxide
BUN
Creatinine
Glucose
Calcium
Vital Signs:
Vital Signs
Temp Pulse Resp BP Pulse Ox
97.8 F 97 16 116/83 100
02/15/24 04:00 02/15/24 05:30 02/15/24 05:30 02/15/24 05:30 02/15/24 05:30
I&O
02/14/24 02/15/24 02/16/24
06:59 06:59 06:59
Intake Total 1431.5 / 1431.5 1357 / 1357
Output Total 745 / 745
Balance 1431.5 / 1431.5 612 / 612
Review of Systems
-
History Source: Patient
All other systems: Reviewed and negative
--- NOTE | 2024-02-15 08:12 | PTCARENOTE ---
Patient OOB to chair, Chest tube to water seal. repeat CXR for 1200. Dr. Rizzo at bedside as well.
--- NOTE | 2024-02-15 08:36 | W.PN.VS ---
Addendum entered and electronically signed by Noman Nuñez MD 02/15/24 09:55:
Seen and examined with MANISH Finnegan. Agree with findings as noted below. Patient notes some pain at the chest tube insertion site but otherwise no significant complaints. No shortness of breath. No right upper extremity weakness or swelling.
Axillary incision site dressing is clean dry and intact. No hematoma. No chest wall crepitus. Chest tube with no significant drainage. No airleak noted. BRITTNI serosanguineous. Right upper extremity soft. Hand is pink and warm with palpable
radial pulse. Motor/sensory intact. Plan/as discussed and noted below.
Original Note:
Today's Communication / Plan
-
Patient seen and examined at bedside with Dr. Noman Nuñez, below plan reviewed with attending
Assessment/Plan
-
POD #5 right subclavian vein thrombosis, POD #1 right first rib resection
Plan:
Patient reports minimal use of SEISMOGRAPH SUPERVISOR will transition to p.o. pain medication regimen
Will place chest tube to waterseal with repeat chest x-ray in 4 hours, if no changes are evident on x-ray or physical exam we will discontinue chest tube
Continue BRITTNI drain today
Continue ICU level care today
Continue heparin infusion today per protocol
PT eval and treat
Subjective Data
-
Date of Service: February 15, 2024
Patient seen and examined at bedside, does report discomfort at chest tube location currently managed with pain medication regimen. Denies nausea, vomiting, fever, and chills.
Objective Data
-
Vital Signs
Temp Pulse Resp BP Pulse Ox
97.8 F 97 23 116/83 99
02/15/24 08:08 02/15/24 05:30 02/15/24 08:00 02/15/24 05:30 02/15/24 08:00
Intake and Output
02/14/24 02/15/24 02/16/24
06:59 06:59 06:59
Intake Total 1431.5 / 1431.5 1357 / 1451 188 / 188
Output Total 745 / 745
Balance 1431.5 / 1431.5 612 / 706 188 / 188
Intake:
Oral fluids 1060 / 1060
IV fluids (Total) 371.5 / 371.5 1357 / 1451 188 / 188
Heparin 77 / 91 28
NSS 400 / 400
Nss 1,000 ml @ 80 mls/hr IV . 880 / 960 160 / 160
[id number] MARIAMA Rx#:[id number]
Amount instilled into Chest 0 / 0
Tube (Total)
Right Upper Lateral 0 / 0
Output:
CT Output (Total) 0 / 0
Right Upper Lateral 0 / 0
Drain Output (Total) 70 / 70
Right Upper Breast Adam- 70 / 70
Silvestre
Urine, Voided 675 / 675
Other:
Number of approximated MODERATE 4
amounts of urine
Lab Results
02/15/24 05:28
02/15/24 05:28
Calcium 9.5 mg/dl (8.4-10.2) 02/15/24 05:28
Phosphorus 4.3 mg/dl (2.5-4.5) 02/13/24 04:40
Magnesium 2.1 mg/dl (1.6-2.3) 02/13/24 04:40
Total Bilirubin 1.1 mg/dl (0.2-1.3) 02/11/24 03:28
Direct Bilirubin 0.2 mg/dl (0.0-0.4) 02/11/24 03:28
AST 28 U/L (17-59) 02/11/24 03:28
ALT 20 U/L (0-50) 02/11/24 03:28
Alkaline Phosphatase 74 U/L (38-126) 02/11/24 03:28
Total Protein 6.4 g/dl (6.3-8.2) 02/11/24 03:28
Albumin 4.1 g/dl (3.5-5.0) 02/11/24 03:28
Physical Exam
-
AAOx3, no apparent distress
No tachycardia
No dyspnea, chest tube with no evidence of air leak, currently to -20 suction, BRITTNI drain with minimal serosanguineous output
RUE: non swelling. no hematoma, palpable radial
[2024-02-15 09:25] LABS: Glycohemoglobin (HgbA1c) 5.4 % (4.0-5.6)
[2024-02-15] MEDS: ROXICODONE 5 MG PO ×3 (10:10→19:53)
--- NOTE | 2024-02-15 13:16 | PTCARENOTE ---
Chest tube pulled at bedside by FLY FINISHER. Pulse ox 98% on room air. Assisted patient back to chair.
--- NOTE | 2024-02-15 13:56 | PTCARENOTE ---
PTT therapeutic. repeat ordered per protocol at 1900.
--- NOTE | 2024-02-15 14:21 | W.PN.UPDATE ---
Update Note
Progress Note Update
Chest tube pulled at bedside, patient tolerated well. Chest x-ray pending. New dressing to chest tube site, new dressing to BRITTNI site
[2024-02-15] MEDS: HEPARIN 25000 UNITS/250 ML IV (17:34)
--- NOTE | 2024-02-15 17:45 | PTCARENOTE ---
Assumed care of pt. VSS. Assessment unchanged. Pt assisted OOB to chair with standby assistance. Heparin and NSS infusing as ordered. Mother at bedside.
[2024-02-15 18:50] LABS: APTT 70.7 Sec (23.4-35.0)
--- NOTE | 2024-02-15 20:00 | PTCARENOTE ---
On assessment pt AAox3, c/o pain to R arm, PRN meds give see MAR, R arm +pulses, warm, denies numbness and tingling, pt requesting to remove FAHAD bandage, Vascular was paged and made aware, vascular suggested to loosen a little but do not remove,
nurse spoke with pt and we will leave dressing as is for now, pt states 'its not too tight we can leave it'. R arm elevated on pillow, RA 99%, ambulated to bathroom standby assist with no issues, no BM today, refused PRN stool softener at this time,
pt was educated due to taking pain meds, BRITTNI drain intact, hep gtt running per protocol, call briceno in reach.
--- NOTE | 2024-02-15 23:22 | PTCARENOTE ---
Pt OOB to the bathroom to void, R arm elevated on pillow, +pulses, no numbness and tingling, call briceno in reach.
[2024-02-16] VITALS (18 sets, daily range): BP systolic 95–118; BP diastolic 65–83; PULSE 97; O2SAT 99; BMI 23.1
[2024-02-16] MEDS: ROXICODONE 5 MG PO (02:20)
[2024-02-16 03:03] LABS: APTT 91.1 Sec (23.4-35.0)
--- NOTE | 2024-02-16 03:46 | PTCARENOTE ---
no changes from prior assessment, PRN meds given see JUL, call briceno in reach
[2024-02-16] MEDS: OFIRMEV 100 IV (04:31)
[2024-02-16 05:12] LABS: Hematocrit 35.5 % (39.0-52.0); Hemoglobin 12.2 g/dL (13.0-18.0); Mean Corp Hgb Conc. 34.4 g/dL (33.0-37.0); Mean Corpuscular Hgb 30.7 pg (27.0-31.0); Mean Corpuscular Volume 89.2 fL (80.0-94.0); Mean Platelet Volume 9.3 fL (7.4-10.4); Platelet Count 164 10^3/uL (130-400); Red Blood Cell Count 3.98 10^6/uL (4.70-6.10); Red Cell Dist. Width 11.9 % (11.5-14.5); White Blood Cell Count 9.1 10^3/uL (4.8-10.8)
--- NOTE | 2024-02-16 05:35 | PTCARENOTE ---
hgb 14.5 to 12.2 with morning labs, no signs of bleeding noted, ENVIRONMENTAL REMEDIATION CONSULTANT aware.
[2024-02-16 06:05] LABS: Blood Urea Nitrogen 15 mg/dl (9-20); Calcium 8.7 mg/dl (8.4-10.2); Carbon Dioxide 27 mmol/L (22-30); Chloride 103 mmol/L (98-107); Estimated Creatinine Clearance > 125 ml/min; Glucose 99 mg/dl (70-99); Potassium 4.3 mmol/L (3.5-5.1); Sodium 137 mmol/L (135-145); eGFR > 60.00
[2024-02-16] MEDS: ZOFRAN 4 MG IV (06:32)
--- NOTE | 2024-02-16 07:23 | W.PN.INTV ---
Today's Communication / Plan
Recommendations
Chest tube discontinued, BRITTNI drain to be as well
Stable on RA, OOB to chair
Tolerating diet
Pain controlled
Discharge planning per team today
Assessment
-
43-year-old male with no significant past medical history presents with right forearm pain X 2 days. There was no reported preceding injury. It also was swollen. He also reported prominent veins in his right arm. He had some associated numbness
and tingling and also right-sided shoulder pain. Initial vitals in the ER showed he was afebrile to 98.3 �F, pulse rate 91, breathing at 16 breaths minute, BP 158/95 and saturating 100% on room air. Initial labs showed normal WBC at 7.8, Hb 14.7,
and INR 1.11. Right upper extremity ultrasound showed an acute occlusive DVT in the right subclavian vein. Right shoulder XR showed no rib fracture or pneumothorax. He was admitted to telemetry and started on a heparin drip. Vascular surgery was
consulted and there was concern for venous thoracic outlet syndrome with recommendation of venous thrombosis. Risks and benefits of vascular intervention were discussed and today he underwent catheter directed thrombolysis in the right upper
extremity. EBL was 2 cc with no immediate complications. Patient was transferred to the ICU postoperatively and now photogrammetric technician services consulted for additional management/recommendations.
TOS s/p 1st rib resection 02/14/24
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
Right upper extremity pain/swelling due to above
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
Osteoarthritis in right acromioclavicular joint
Plan
Postoperative management as per vascular surgery, s/p rib resection 02/14/24
s/p chest tube for PTX, discontinued
s/p infusion of alteplase/balloon angioplasty of right subclavian and innominate vein on 02/11/24
Vasc following
Currently stable on RA
Maintain SpO2 >90-94%
prn nebulized bronchodilators - not currently bronchospastic
Incentive spirometry encouraged 10x per hour for at least 4 hrs a day
Aspiration precautions
Pain control
Neurovascular checks q4hr
Maintain MAP>65
Replete electrolytes with K>4, Mg>2
Maintain euglycemia with goal BG 140-180
Vascular surgery following-correspondence and operative notes reviewed
Transfuse blood products as needed to keep Hb>7g/dL, and plt>50k (given post-operative status)
Possible outpatient hematology evaluation for hypercoagulable workup
DVT prophylaxis
Early nutrition
Early mobilization
Diagnostic Data
Right upper extremity duplex ultrasound 02/09/2024: ACUTE OCCLUSIVE DEEP VENOUS THROMBOSIS in the RIGHT SUBCLAVIAN VEIN.
CXR 02/10/2024: Unremarkable exam
-----
Critical Care time 31 mins -- The patient is admitted for acute critical illness for the treatment of vital organ failure and/or prevention of further life-threatening conditions. Total care includes time spent in review of history, physical exam,
medications, hemodynamic/ventilator parameters, laboratory data, imaging and discussion with house staff, pharmacy, respiratory therapy, grain combine driver, and nursing.
Subjective Dataa
Subjective Data
Date of Service:
Date of Service: February 16, 2024
Chief Complaint: Action Finisher Follow Up
Subjective:
Doing well today, stable on RA
No new complaints
CXR stable
Sitting in chair, OOB
Objective Data
Data Reviewed
Vital Signs / I&O / Oxygen:
Vital Signs
Temp Pulse Resp BP Pulse Ox
97.7 F 96 13 118/81 95
02/16/24 04:31 02/16/24 06:00 02/16/24 06:00 02/16/24 06:00 02/16/24 06:00
Intake and Output
02/15/24 02/16/24 02/17/24
06:59 06:59 06:59
Intake Total 1357 / 1451 2637 / 2637
Output Total 745 / 745 50 / 50
Balance 612 / 706 2587 / 2587
SaO2 95
Nasal Cannula flow liters per 2
minute
Physical Exam
General: Respiratory Distress (negative), Comfortable, Chills (negative) and Sweats (negative)
HEENT: Normocephalic, Anicteric and Moist Mucous Membranes
Cardiovascular: S1-S2, Regular Rhythm and Other (normal heart rate)
Respiratory: Clear, Wheeze (negative), Crackles (negative), Rhonchi (negative) and Non-Labored Respirations
GI: Soft, Non Distended, Non Tender and Normal Bowel Sounds
Neurology: Awake, Alert, AO x 3, No Motor Deficits and Tremors (negative)
Skin: Warm, Dry, Cyanosis (negative) and Jaundice (negative)
Labs/Micro/Reports
Lab Data
02/16/24 04:47
02/16/24 04:47
Laboratory Results
02/15/24 02/15/24 02/16/24
12:59 18:27 02:10
APTT 76.0 H 70.7 H 91.1 H
--- NOTE | 2024-02-16 07:44 | W.PN.HOSP.TC ---
Addendum entered and electronically signed by Azam Cody DO 02/16/24 13:25:
Spoke with vascular surgery team, they recommend discharge today.
Outpatient follow-up.
Original Note:
Today's Communication/Plan
-
OT consult
Chest x-ray report
Await vascular surgery input
Assessment / Plan
Assessment / Plan
Gen-AAOx3, NAD
HEENT-NC, AT, anicteric, clear oral mm
Neck-supple
CV-reg, no M, +S1/S2
Lungs-clear B/L
Abd-soft, NT, ND
Ext-no edema
Musculoskeletal-no cyanosis, clubbing, right upper extremity Harsh wrap
Skin-warm and dry, right sided chest tube
Neuro-grossly non-focal
Psych-calm, cooperative
Acute occlusive right subclavian vein deep vein thrombosis -due to venous thoracic outlet syndrome.
Underwent right transaxillary first rib resection with anterior scalenectomy 02/13, balloon angioplasty of right subclavian vein, mechanical thrombectomy of right subclavian vein reocclusion.
Hemodynamically stable. Leukocytosis resolved. Afebrile.
Continue IV heparin drip
Transition to Eliquis when okay with surgical team.
Right pneumothorax -noted in the OR 02/13. Chest tube removed 02/14. Repeat chest x-ray this morning does not show pneumothorax based on my read, awaiting radiologist read.
Hyperglycemia -suspect stress response. Hemoglobin A1c 5.4%.
DVT prophylaxis:
Currently on treatment heparin drip
CODE STATUS:
Full code
Dispo -can discharge when cleared by surgical team. Close follow-up with PCP and vascular surgery.
Anticipated Discharge: Today
Subjective/Interval History
-
Date of Service: February 16, 2024
Patient seen and examined. Complaining of minor pleuritic right-sided pain related to recent chest tube. Denies shortness of breath.
Mild nausea related to analgesics.
Objective Data
-
Labs:
Laboratory Results
02/16/24 02/16/24 02/16/24
02:10 04:47 08:00
WBC 9.1
Hgb 12.2 L
Hct 35.5 L
Plt Count 164
APTT 91.1 H Pending
Sodium 137
Potassium 4.3
Chloride 103
Carbon Dioxide 27
BUN 15
Creatinine 0.8
Glucose 99
Calcium 8.7
Vital Signs:
Vital Signs
Temp Pulse Resp BP Pulse Ox
97.7 F 96 13 118/81 95
02/16/24 04:31 02/16/24 06:00 02/16/24 06:00 02/16/24 06:00 02/16/24 06:00
I&O
02/15/24 02/16/24 02/17/24
06:59 06:59 06:59
Intake Total 1357 / 1451 2637 / 2637
Output Total 745 / 745 50 / 50
Balance 612 / 706 2587 / 2587
Review of Systems
-
History Source: Patient
All other systems: Reviewed and negative
--- NOTE | 2024-02-16 08:08 | W.PN.VS ---
Today's Communication / Plan
-
Discussed with Dr. Rizzo
Assessment/Plan
-
POD #6 right subclavian vein thrombosis, POD #2 right first rib resection
Plan:
I will remove BRITTNI drain today
Will transition from heparin to Xarelto versus Eliquis today, case management consult for pricing
PT/OT
Chest x-ray this morning negative for pneumothorax
Possible discharge later this afternoon, will reevaluate the patient later today
Subjective Data
-
Date of Service: February 16, 2024
Patient seen at bedside this a.m. resting comfortably. No events overnight. Reports pain is well-controlled with oral pain medication. BRITTNI output 25 overnight
Objective Data
-
Vital Signs
Temp Pulse Resp BP Pulse Ox
97.7 F 96 13 118/81 95
02/16/24 04:31 02/16/24 06:00 02/16/24 06:00 02/16/24 06:00 02/16/24 06:00
Intake and Output
02/15/24 02/16/24 02/17/24
06:59 06:59 06:59
Intake Total 1357 / 1451 2637 / 2637
Output Total 745 / 745 50 / 50
Balance 612 / 706 2587 / 2587
Intake:
Oral fluids 450 / 450
IV fluids (Total) 1357 / 1451 2187 / 2187
Heparin 77 / 91 347 / 347
NSS 400 / 400
Nss 1,000 ml @ 80 mls/hr IV . 880 / 960 1840 / 1840
[id number] MARIAMA Rx#:[id number]
Amount instilled into Chest 0 / 0
Tube (Total)
Right Upper Lateral 0 / 0
Output:
CT Output (Total) 0 / 0
Right Upper Lateral 0 / 0
Drain Output (Total) 70 / 70 50 / 50
Right Upper Breast Adam- 70 50 / 50
Silvestre
Urine, Voided 675 / 675
Other:
Number of approximated LARGE 1
amounts of urine
Lab Results
02/16/24 04:47
02/16/24 04:47
Calcium 8.7 mg/dl (8.4-10.2) 02/16/24 04:47
Phosphorus 4.3 mg/dl (2.5-4.5) 02/13/24 04:40
Magnesium 2.0 mg/dl (1.6-2.3) 02/16/24 04:47
Total Bilirubin 1.1 mg/dl (0.2-1.3) 02/11/24 03:28
Direct Bilirubin 0.2 mg/dl (0.0-0.4) 02/11/24 03:28
AST 28 U/L (17-59) 02/11/24 03:28
ALT 20 U/L (0-50) 02/11/24 03:28
Alkaline Phosphatase 74 U/L (38-126) 02/11/24 03:28
Total Protein 6.4 g/dl (6.3-8.2) 02/11/24 03:28
Albumin 4.1 g/dl (3.5-5.0) 02/11/24 03:28
Physical Exam
-
AAOx3, no apparent distress
No tachycardia
No dyspnea, BRITTNI drain with minimal serosanguineous output 25 overnight
RUE: non swelling. no hematoma, palpable radial
--- NOTE | 2024-02-16 09:00 | PTCARENOTE ---
Complete assessment done,and documented. Pt able to RODRIGUEZ bilat, including R arm. Pt with R arm issa wrap intact, +rad pulse, and warm skin. R upper BRITTNI intact, draining sm amt of red/bloody drainage. Trace edema noted on R upper ext. R drsg under arm
area dry and intact. PT is SR on monitor, BP stable, and 100% sat on R/A. Heparin drip running at 1500 units/hr, and PTT is therapertic at 78.2. Pt able to ambulate to bathroom voiding mod to large amts of yellow urine. Call briceno at side.
[2024-02-16 09:31] LABS: APTT 78.2 Sec (23.4-35.0)
--- NOTE | 2024-02-16 11:15 | CM ---
CM following re: discharge planning.
Discussed in Rounds, reviewed pt's chart, met with pt and pt's spouse at bedside.
Eliquis collier checked with [facility] pharmacy in [facility] prescription plan. Eliquis 5 mg BID for 30 day supplies - $100.00 co-pay. Free 30 days coupon and $10.00 monthly coupon provided.
PT and OT evaluations noted - pt has no skilled OT needs and recommendations are: home with spouse support. Awaiting for PT updated note
D/C plan: home with spouse support. Spouse to transport at discharge.
[2024-02-16] MEDS: ELIQUIS 10 MG PO (11:30)
[2024-02-16] MEDS: TYLENOL 650 MG PO (11:46)
--- NOTE | 2024-02-16 12:34 | W.PN.UPDATE ---
Update Note
Progress Note Update
BRITTNI DC'd at bedside, patient tolerated well. Dressing applied.
--- NOTE | 2024-02-16 12:41 | W.[place]-PDMP ---
[place]-PD[place]
-
Checked the [place]- Prescription Drug Monitoring Program website, no red flags identified; safe to proceed with prescription.
--- NOTE | 2024-02-16 12:59 | PTCARENOTE ---
Heparin drip was d/c'd at 1030 and eliquis dose started po. Pt tolerating OOB to chair, and encouraged to do I/S. R upper arm BRITTNI d/c'd by Angela HAMMOND. Pt also seen by Dr Salinas on morning rounds. Pt's at bedside and updated. Pt was given tylenol
for 3/10 surgical site discomfort. VSS.
--- NOTE | 2024-02-16 13:24 | W.DS.TRANS ---
DC Summary - Dowel Pointer
-
Discharge Instructions:
Discharge Diagnosis/Procedures Acute right subclavian vein DVT, Right 1st rib
resection, R subclavian vein balloon angioplasty
Diet Regular
Activity As tolerated
Driving Restrictions No driving for 1 week
Bathing Restrictions After dressing removed
Instructions:
Stand-Alone Forms: DC Instr - Vascular OR
Changes to Home Medications: No
Discharge Medications:
DC Medications w/original date entered in [employer]
apixaban 5 mg (74 tabs) tablets in a dose pack (Eliquis DVT-PE Treat 30D Start) See Rx Instructions PO .COMPLEX #74 ea 02/16/24
oxycodone 5 mg tablet 5 mg PO Q4HPRN PRN mild pain #10 tabs 02/16/24
Home Medication Changes
Pending Results: No
--- NOTE | 2024-02-16 13:31 | PTCARENOTE ---
Pt assisted to walk with this nurse and account group supervisor, around the perimeter of hallway of ICU and IMU, tolerating very well. Dr Rizzo in to see pt, and pt is cleared to go home today.
--- NOTE | 2024-02-16 15:38 | PTCARENOTE ---
INTs removed, Pt dressed, all discharge instructions clarified and reviewed. Pt brought to front door via a wheelchair, meeting pt's Mile. Pt and very thankful for care.
== END 2024-02-16 15:41 | disposition home or self-care (01) | DRG 271 ==
LOC: ICU 23:30
PROVIDERS: Hospitalist; Internal Medicine Critical Care Medicine; Nurse Practitioner; Nurse Practitioner Acute Care; Nurse Practitioner Primary Care; Physician Assistant; Physician Assistant Medical; Surgery Vascular Surgery; ADMITTING PHYSICIAN Hospitalist; ATTENDING PHYSICIAN Hospitalist; CONSULT PHYSICIAN Internal Medicine; CONSULT PHYSICIAN Surgery; EMERGENCY PHYSICIAN Emergency Medicine; FAMILY PHYSICIAN Family Medicine
PROC: 3E04317 Introduction of Other Thrombolytic into Central Vein, Percutaneous Approach (ICD-10-PCS; 2024-02-10)
PROC: 05753ZZ Dilation of Right Subclavian Vein, Percutaneous Approach (ICD-10-PCS; 2024-02-11)
PROC: 0W9930Z Drainage of Right Pleural Cavity with Drainage Device, Percutaneous Approach (ICD-10-PCS; 2024-02-14)
PROC: 05C53ZZ Extirpation of Matter from Right Subclavian Vein, Percutaneous Approach (ICD-10-PCS; 2024-02-14)
PROC: 0KB20ZZ Excision of Right Neck Muscle, Open Approach (ICD-10-PCS; 2024-02-14)
PROC: 0PT10ZZ Resection of 1 to 2 Ribs, Open Approach (ICD-10-PCS; 2024-02-14)
DX: I82.B11 Acute embolism and thrombosis of right subclavian vein (principal); J93.9 Pneumothorax, unspecified; G54.0 Brachial plexus disorders; M19.011 Primary osteoarthritis, right shoulder; Z79.01 Long term (current) use of anticoagulants
CPT/HCPCS: 21615; 36012; 37187; 37212; 37248; 71045; 73030; 75820; 76937; 80048; 80053; 82248; 83036; 83735; 84100; 85014; 85018; 85025; 85027; 85049; 85384; 85610; 85730; 86850; 86900; 86901; 93005; 93971; 97110; 97116; 97163; 97166; 99285; C1725; C1751; C1757; C1769; C1894; J2997; Q9967

== ENCOUNTER 2024-05-13 14:30 | Emergency (ER) | payer OTHER, SELFPAY ==
[2024-05-13 14:39] VITALS: BP 165/94
[2024-05-13 15:06] LABS: % Basophils 0.8 % (0-2); % Eosinophils 0.5 % (0-6); % Immature Granulocytes 0.2 % (0-0.5); % Lymphocytes 16.2 % (20.5-51.1); % Monocytes 4.6 % (1.7-9.3); % Neutrophils 77.7 % (42.2-75.2); Absolute Basophils 0.1 10^3/uL (0-0.2); Absolute Monocytes 0.3 10^3/uL (0.1-0.6); Absolute Neutrophils 4.7 10^3/uL (1.4-6.5); Hematocrit 45.6 % (39.0-52.0); Hemoglobin 15.9 g/dL (13.0-18.0); Mean Corp Hgb Conc. 34.9 g/dL (33.0-37.0); Mean Corpuscular Hgb 31.3 pg (27.0-31.0); Mean Corpuscular Volume 89.8 fL (80.0-94.0); Mean Platelet Volume 9.2 fL (7.4-10.4); Nucleated Red Blood Cells % 0 % (-); Platelet Count 253 10^3/uL (130-400); Red Blood Cell Count 5.08 10^6/uL (4.70-6.10); Red Cell Dist. Width 11.2 % (11.5-14.5)
[2024-05-13 15:07] LABS: INR 1.07; PT 14.4 Sec (11.4-14.6)
[2024-05-13 15:15] LABS: ALT (SGPT) 30 U/L (0-50); AST (SGOT) 28 U/L (17-59); Albumin 5.1 g/dl (3.5-5.0); Alkaline Phosphatase 82 U/L (38-126); Blood Urea Nitrogen 17 mg/dl (9-20); Calcium 9.9 mg/dl (8.4-10.2); Carbon Dioxide 30 mmol/L (22-30); Chloride 100 mmol/L (98-107); Glucose 102 mg/dl (70-99); Potassium 3.8 mmol/L (3.5-5.1); Sodium 139 mmol/L (135-145); Total Bilirubin 0.4 mg/dl (0.2-1.3); Total Protein 7.6 g/dl (6.3-8.2); eGFR > 60.00
[2024-05-13 15:26] LABS: Troponin I < 0.012 ng/ml
[2024-05-13 17:46] VITALS: BP 118/78
--- NOTE | 2024-05-13 18:08 | ED.GENMED ---
History of Present Illness
General
Chief Complaint: Cardiac Symptoms
Time Seen by Provider: 05/13/24 17:43
History of Present Illness
History of Present Illness:
44-year-old male with prior history of subclavian DVT and thoracic outlet syndrome on Eliquis presenting to the emergency department for chest pain and difficulty breathing. Patient reports for the past week he has been having some left-sided chest
pain with breathing. He has noticed that he has had to catch his breath on several occasions. In January 2024, patient had right upper extremity swelling and pain, was diagnosed with a right subclavian DVT, started on Eliquis and had a catheter
directed thrombolysis and first right rib removal. It was thought that his thoracic outlet syndrome was caused by his occupation and overuse of his right upper extremity. Denies any known family history of clotting disorders. Denies any personal
cardiac history. Denies any injury to the chest wall. Denies cough or fever. He notes compliance with his Eliquis. He is supposed to stop Eliquis on May 18, after completion of 3 months therapy. Denies additional acute complaints
Past History
Past History
ED Past Medical History: None
ED Past Surgical History: None
Social History
Tobacco: Non-smoker
Personal:
Living: with family
Employment: Employed ([employer])
Family History
Family History: Other (Noncontributory)
Phy Exam
Physical Exam
Physical Exam:
General: Well-appearing, no clinical signs of dehydration, nontoxic and in no acute distress
HEENT: protecting airway
Neck: appears supple
CV: Normal heart rate, regular rhythm, no evidence of cyanosis
Resp: No accessory muscle use, no increased work of breathing, lungs clear to auscultation bilaterally
Abd: No distention
Extremities: No deformities, no swelling, no erythema
Neuro: alert, no focal neurologic deficit
: deferred
Rectal: deferred
Psych: Normal affect
Skin: Intact
Course
Orders/Labs/Results
Orders:
Orders
05/13/24 14:31
Electrocardiogram (*1) Urgent
Reason for Study: Other
Other Reason for Exam: Respiratory Distress
EKG- Treatment ONCE
CR Chest - 2 Views Urgent
Comment:
Reason For Exam: respiratory distress
05/13/24 14:47
Complete Blood Count/With Diff Urgent
Comprehensive Metabolic Panel Urgent
Prothrombin Time Urgent
Troponin I Urgent
05/13/24 18:04
CT Chest Pe Study Urgent
Comment:
Reason For Exam: SOB, hx subclavian DVT
Abnormal Lab Results
05/13/24
14:47
MCH 31.3 H pg
(27.0-31.0)
RDW 11.2 L %
(11.5-14.5)
Absolute Lymphs (auto) 1.0 L 10^3/uL
(1.2-3.4)
Neutrophils % 77.7 H %
(42.2-75.2)
Lymphocytes % 16.2 L %
(20.5-51.1)
Glucose 102 H mg/dl
(70-99)
Albumin 5.1 H g/dl
(3.5-5.0)
05/13/24 14:47
05/13/24 14:47
Vital Signs
Initial and Last Documented VS:
Initial Vital Signs
Temp Pulse Resp BP Pulse Ox
98 F 119 16 165/94 100
05/13/24 14:39 05/13/24 14:39 05/13/24 14:39 05/13/24 14:39 05/13/24 14:39
Last Documented Vital Signs
Temp Pulse Resp BP Pulse Ox
98 F 95 20 129/78 100
05/13/24 14:39 05/13/24 19:08 05/13/24 19:08 05/13/24 19:08 05/13/24 19:08
MDM/Problems Addressed
MDM/Problems Addressed:
44-year-old male with history of thoracic outlet syndrome and right subclavian DVT on Eliquis presenting to the emergency for 1 week of left-sided chest pain difficulty breathing. Vital signs on arrival significant for tachycardia.
On exam patient is resting comfortably, no acute distress or discomfort. EKG obtained on patient's arrival, no acute ischemic abnormality. Patient without any significant coronary risk factors, without concern for ACS. In addition patient had
screening laboratory analysis prior to my assessment, negative troponin, thus low risk by heart score. Unremarkable cardiac and pulmonary exam. However patient is slightly tachycardic with history of suspected provoked DVT. Cannot safely rule out
PE at this time, high risk. This reason we will obtain a CT PE scan.
21:20 -CT PE is negative. Heart rate is controlled. At this time feel stable for discharge with continued outpatient vascular follow-up and patient has scheduled hematology follow-up. Return precautions discussed and patient verbalized
understanding
*EKG
Interpreted by ED Provider?: Yes
EKG Intrepretation Date: 05/13/24
EKG Intrepretation Time: 18:12
Interpretation: normal
Comparison EKG: no changes (02/14/24)
Heart Rate: 111
Rate: normal
Rhythm: sinus
[place]: normal axis
Interval: normal interval
QRS Pattern: normal QRS
Ischemia: no ischemia
*Critical Care Note
Total Time (30-74mins, 75-104mins- exclusive of procedures): Not Applicable
ED Attending Note
-
Portions of this chart may have been created with voice recognition software.� Occasional wrong word or��sound alike� substitutions may have occurred due to the inherent limitations of voice recognition software.
Discharge Plan
Departure
Prescriptions:
No Action
Eliquis DVT-PE Treat 30D Start 5 mg (74 tabs) tablets,dose pack
See Rx Instructions .ROUTE .COMPLEX Qty: 74 0RF
Rx Instructions:
orally per package directions
Referrals:
UNKNOWN - PT DOES,NOT KNOW [Family Provider] -
Interventions
Interventions:
*Risk Screen - Suicide Last Done: 05/13/24 14:39
*General Assessment Last Done: 05/13/24 18:25
*Neglect/Abuse Screening Last Done: 05/13/24 14:39
ED- Fall Risk Assessment Last Done: 05/13/24 18:25
*ED COVID-19 Vaccine History Last Done: 05/13/24 18:00
ED- Pulmonary Assessment Last Done: 05/13/24 19:00
ED- Cardiac Assessment Last Done: 05/13/24 18:25
Discharge Date and Time
Print Language: JAMAICAN
[2024-05-13 19:08] VITALS: BP 129/78
[2024-05-13 20:02] VITALS: BP 123/79
[2024-05-13 21:00] VITALS: BP 114/82
== END 2024-05-13 21:50 | disposition home or self-care (01) ==
LOC: EMR 14:30
PROVIDERS: Emergency Medicine; EMERGENCY PHYSICIAN Student in an Organized Health Care Education/Training Program
DX: R07.89 Other chest pain (principal); Z79.01 Long term (current) use of anticoagulants
CPT/HCPCS: 99285; 71046; 71275; 80053; 84484; 85025; 85610; 93005; Q9967

== ENCOUNTER → 2024-06-15 07:55 | Outpatient (REF) | payer OTHER, SELFPAY | LOC: RCS 07:55 | PROVIDERS: ATTENDING PHYSICIAN Internal Medicine Cardiovascular Disease; FAMILY PHYSICIAN Nurse Practitioner Family | DX: R07.89 Other chest pain (principal); R06.09 Other forms of dyspnea | CPT/HCPCS: 93306 ==

== ENCOUNTER → 2024-06-18 09:48 | Outpatient (REF) | payer OTHER, SELFPAY | LOC: RCS 09:48 | PROVIDERS: ATTENDING PHYSICIAN Internal Medicine Cardiovascular Disease; FAMILY PHYSICIAN Nurse Practitioner Family | DX: R07.89 Other chest pain (principal); R06.09 Other forms of dyspnea | CPT/HCPCS: 93017 ==

== ENCOUNTER → 2024-08-28 08:13 | Outpatient (REF) | payer OTHER, SELFPAY | LOC: HWRAD 08:13 | PROVIDERS: ATTENDING PHYSICIAN Nurse Practitioner Family; REFERRING PHYSICIAN Surgery Vascular Surgery | DX: M25.512 Pain in left shoulder (principal); Z86.69 Personal history of other diseases of the nervous system and sense organs | CPT/HCPCS: 93971 ==

== ENCOUNTER → 2025-03-01 08:22 | Outpatient (REF) | payer OTHER, SELFPAY | LOC: RAD 08:22 | PROVIDERS: ATTENDING PHYSICIAN Surgery Vascular Surgery; FAMILY PHYSICIAN Nurse Practitioner Family | DX: I87.1 Compression of vein (principal) | CPT/HCPCS: 93971 ==